=== PATIENT | female | born 1950 | race Caucasian/White ===

== ENCOUNTER → 2016-12-03 | Outpatient (CLI) | payer MEDICARE ==
[~2016-12-03] MED LIST: /ESOM40CA; /WARF4TA; ALBU17IN INH; ALBU83IN INH; CALC500T49 PO; CARA1TAB2 PO; COUM1TAB17 PO; COUM2.5T11 PO; DELT1TAB PO; EFFE75CA75; GUAI100S7 PO; IBUP200C PO; IPRASOL4 NEB; KLON0.5T; LASI20TA PO; LEVO500T32 PO; OMEP40CA2 PO; PERC5TAB6 PO; REGL5TAB2 PO; REQU1TAB16 PO; RYTH150T; ZOFR20TA PO
== END ==
LOC: M SMT 14:00
PROVIDERS: ATTEND Physician Assistant Medical
DX: M81.0 Age-related osteoporosis without current pathological fracture (principal)

== ENCOUNTER → 2016-12-25 | Outpatient (CLI) | payer MEDICARE ==
[2016-12-25 18:08] LABS: BASO % 0.4 % (0.0-1.0); EOS # 0.1 K/mm3 (0.0-0.50); EOS % 1.8 % (0.0-3.0); LARGE UNSTAINED CELL # 0.1 K/mm3 (0.0-0.4); LARGE UNSTAINED CELL % 2.4 % (0.0-4.0); LYMPH # 1.7 K/mm3 (1.5-4.5); LYMPH % 31.7 % (24.0-44.0); MEAN CORPUSCULAR HEMOGLOBIN 27.5 pg (27.0-33.0); MEAN CORPUSCULAR HGB CONC 30.4 g/dl (32.0-36.5); MEAN CORPUSCULAR VOLUME 90.7 fl (80.0-96.0); MONO # 0.3 K/mm3 (0.0-0.8); MONO % 5.1 % (0.0-5.0); NEUTROPHILS # 3.1 K/mm3 (1.8-7.7); NEUTROPHILS % 58.7 % (36.0-66.0); PLATELET COUNT, AUTOMATED 269 k/mm3 (150-450); RED CELL DISTRIBUTION WIDTH 13.6 % (11.5-14.5); WHITE BLOOD COUNT 5.2 K/mm3 (4.0-10.0)
[2016-12-25 18:22] LABS: ALBUMIN 3.5 GM/DL (3.2-5.2); ANION GAP 8 MEQ/L (8-16); BLOOD UREA NITROGEN 13 MG/DL (7-18); CALCIUM LEVEL 8.3 MG/DL (8.8-10.2); CARBON DIOXIDE LEVEL 28 MEQ/L (21-32); CHLORIDE LEVEL 106 MEQ/L (98-107); CREATININE FOR GFR 0.69 MG/DL (0.55-1.02); GLOMERULAR FILTRATION RATE > 60.0 (>45); GLUCOSE, FASTING 88 MG/DL (80-110); PHOSPHORUS LEVEL 2.6 MG/DL (2.5-4.9); POTASSIUM SERUM 4.2 MEQ/L (3.5-5.1); SODIUM LEVEL 142 MEQ/L (136-145); THYROXINE (T4) 9.4 UG/DL (4.5-12.0)
[2016-12-25 18:26] LABS: LUTEINIZING HORMONE 20.8 mIU/mL
== END ==
LOC: M SMT 14:00
PROVIDERS: ATTEND Nurse Practitioner Family
DX: L29.9 Pruritus, unspecified (principal)

== ENCOUNTER 2017-01-20 15:58 | Emergency (ER) | payer MEDICARE ==
[2017-01-20] MEDS ORDERED: MORPHINE 2 MG/ML 1ML SYRINGE As Ordered ONE ×2 (16:50→18:46)
[2017-01-20] MEDS ORDERED: ONDANSETRON 4MG/2ML VIAL (J2405) As Ordered ONE (16:50)
[2017-01-20 17:23] LABS: BASO % 0.3 % (0.0-1.0); EOS # 0.1 K/mm3 (0.0-0.50); EOS % 1.4 % (0.0-3.0); LARGE UNSTAINED CELL # 0.1 K/mm3 (0.0-0.4); LYMPH # 1.2 K/mm3 (1.5-4.5); LYMPH % 24.3 % (24.0-44.0); MEAN CORPUSCULAR HEMOGLOBIN 27.4 pg (27.0-33.0); MEAN CORPUSCULAR HGB CONC 31.7 g/dl (32.0-36.5); MEAN CORPUSCULAR VOLUME 86.2 fl (80.0-96.0); MONO # 0.1 K/mm3 (0.0-0.8); NEUTROPHILS # 3.3 K/mm3 (1.8-7.7); PLATELET COUNT, AUTOMATED 174 k/mm3 (150-450); WHITE BLOOD COUNT 4.8 K/mm3 (4.0-10.0)
[2017-01-20 17:38] LABS: ALBUMIN 3.2 GM/DL (3.2-5.2); ALBUMIN/GLOBULIN RATIO 0.82 (1.00-1.93); ALKALINE PHOSPHATASE 89 U/L (45-117); ALT/SGPT 28 U/L (12-78); ANION GAP 9 MEQ/L (8-16); AST/SGOT 35 U/L (15-37); BILIRUBIN,DIRECT < 0.1 MG/DL (0.0-0.2); BILIRUBIN,TOTAL 0.2 MG/DL (0.2-1.0); BLOOD UREA NITROGEN 22 MG/DL (7-18); CALCIUM LEVEL 9.1 MG/DL (8.8-10.2); CARBON DIOXIDE LEVEL 27 MEQ/L (21-32); CHLORIDE LEVEL 101 MEQ/L (98-107); CREATININE FOR GFR 0.78 MG/DL (0.55-1.02); GLOMERULAR FILTRATION RATE > 60.0 (>45); GLUCOSE, FASTING 105 MG/DL (80-110); POTASSIUM SERUM 3.9 MEQ/L (3.5-5.1); SODIUM LEVEL 137 MEQ/L (136-145); TOTAL PROTEIN 7.1 GM/DL (6.4-8.2)
[2017-01-20 19:12] LABS: INR 1.85
--- NOTE | 2017-01-20 19:26 | REP ---
Clinical: Renal colic. Comparison: 05/24/2011. 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 Lung bases demonstrate chronic bibasilar fibroatelectatic changes similar to prior examination. Liver, spleen, pancreas, bilateral adrenal glands and kidneys are normal for noncontrast evaluation. The patient is status post cholecystectomy. No perinephric stranding, hydroureteronephrosis, intrarenal or obstructing ureteral calculi are identified. IVC filter in stable position. The enteric system is without obstruction or acute inflammatory process sigmoid diverticula noted without acute diverticulitis. Pelvis demonstrates normal bladder and evidence for prior hysterectomy. No ascites. No free air. No obvious adenopathy. Abdominal aorta without aneurysm. Musculoskeletal structures demonstrate degenerative changes. Impression: 1. No acute intra-abdominal or pelvic pathology appreciated. 2. Chronic elevation to the left hemidiaphragm with changes suggesting prior diaphragmatic rupture repair. 3. No free fluid. 4. Kidneys without hydroureternephrosis, intrarenal or obstructing ureteral calculi. Signed by Billy Duarte MD 01/20/2017 07:18 P
[2017-01-20] MEDS ORDERED: ZITH250T PO (19:59)
[2017-01-20] MEDS ORDERED: LASI20TA PO (19:59)
[2017-01-20] MEDS ORDERED: PRESCAP6 PO (20:02)
[2017-01-20] MEDS ORDERED: CO Q1CAP PO (20:02)
[2017-01-20] MEDS ORDERED: DOXE10CA PO (20:02)
[2017-01-20] MEDS ORDERED: GI COCKTAIL 50ML BTL(HYOSCYAMINE/MAALOX/LIDOCAINE VISCOUS)(1:3:1) As Ordered ONE (20:20)
[2017-01-20] MEDS ORDERED: LevoFLOXacin 500 MG TABLET As Ordered ONE (20:20)
--- NOTE | 2017-01-20 22:07 | EDDOCDS ---
Physician Documentation [facility] Name: eLxi Duarte Age: 66 yrs Sex: Female : 1950 Arrival Date: 01/20/2017 Time: 15:58 Bed I2 / M2 Private MD: Sherman Bailey FPA Disposition: 01/20/17 21:48 Discharged to Home/Self Care. Impression: Cystitis, Nausea and vomiting, Diarrhea, unspecified. - Condition is Stable. - Discharge Instructions: Food Choices to Help Relieve Diarrhea, Adult, Urinary Tract Infection. - Prescriptions for Levaquin 500 mg Oral Tablet - take 1 tablet by ORAL route once daily for 7 days; 7 tablet. - Medication Reconciliation form. - Follow up: Emergency Department; When: As needed. Follow up: Sherman Bailey; When: Call to arrange an appointment; Reason: Wound/Symptom Recheck, Recheck today's complaints, Worsening of conditions, Continuance of care. Follow up: Sherman Bailey; When: Tomorrow; Reason: Wound/Symptom Recheck, Recheck today's complaints, Worsening of conditions, Continuance of care. - Problem is an ongoing problem. - Symptoms have improved. Historical: - Allergies: PENICILLINS (Unknown); codeineI dont remember; Dilantin (Hives); Erythromycin (Vomit); - Home Meds: 1. calcium 500 mg twice a day 2. Coumadin 5 mg M-T-- and 2.5 mg Th and Damon Oral tab 1 tab once daily 3. Carafate 1 gram Oral tab 1 tab 4 times per day 4. Lasix 20 mg Oral tab 1 tab once daily 5. omeprazole 40 mg Oral cpDR 1 cap 2 times per day 6. Percocet 5-325 mg Oral tab I don't take it unless I am desperate 7. Requip 1 mg Oral tab 1 tab daily 8. Ventolin Rotahaler/Rotacaps Inhl as needed 9. Zofran (as hydrochloride) 4 mg Oral tab as needed 10. z-radha 1 tab daily starte yesterday - PMHx: Anemia; DVT; GERD; Hiatal Hernia; Osteoporosis; PE; restless leg syndrome; Tear Film Insufficiency; - PSHx: Cholecystectomy; Breast Reduction; Hysterectomy; HERNIA REPAIR; Appendectomy; VIJAY FILTER 2005; - Social history: Smoking status: Patient states former smoker of tobacco. No barriers to communication noted, The patient speaks fluent [place]. - Family history: Not pertinent. - : The pt / caregiver states he / she is on anticoagulants: coumadin. Home medication list is obtained from the patient, [employer] import data. - Exposure Risk Screening:: None identified. Vital Signs: 01/20 16:02 BP 90 / 55; Pulse 89; Resp 16; Temp 100.6(O); Pulse Ox 97% ; Weight 62.6 kg / 138.01 lr2 lbs (R); Height 5 ft. 2 in. (157.48 cm) (R); Pain 8/10; 18:09 BP 103 / 64; Pulse 71; Resp 16; Temp 98.1; Pulse Ox 96% on R/A; lr2 19:17 BP 106 / 69; Pulse 72; Pulse Ox 94% ; Pain 3/10; kc3 19:18 BP 106 / 69; Pulse 72; Resp 18; Pulse Ox 94% on R/A; Pain 3/10; kc3 21:28 BP 134 / 71 Supine; Pulse 96; kc3 21:28 BP 141 / 79 Sitting; Pulse 69; kc3 21:28 BP 129 / 81 Standing; Pulse 73; kc3 22:04 BP 115 / 73; Pulse 65; Resp 18; Temp 97.2(O); Pulse Ox 98% on R/A; kc3 16:02 Body Mass Index 25.24 (62.60 kg, 157.48 cm) lr2 MDM: 16:45 NS 0.9% 1000 ml IV at bolus once ordered. cc10 16:45 Ondansetron 4 mg IVP once ordered. cc10 16:45 IV Saline Lock ordered. cc10 16:45 Undress patient appropriately for examination ordered. cc10 16:45 morphine 2 mg IVP once ordered. cc10 16:45 Stool samples ordered. cc10 16:46 Basic Metabolic Profile Ordered. EDMS 16:46 CBC with Diff Ordered. EDMS 16:46 Lipase Ordered. EDMS 16:46 Liver Profile Ordered. EDMS 16:46 Urinalysis Ordered. EDMS 16:46 Urine Culture Ordered. EDMS 16:47 NOTHING BY MOUTH+DIET ordered. EDMS 16:48 GASTROINTESTINAL (GI) PANEL Ordered. EDMS 17:53 Financial registration complete. zo 17:56 Basic Metabolic Profile Reviewed. cc10 17:56 CBC with Diff Reviewed. cc10 17:56 Liver Profile Reviewed. cc10 17:56 Urinalysis Reviewed. cc10 17:56 Lipase Reviewed. cc10 17:57 [facility] [place] [facility] Payment Agreement was scanned into [employer] and attached to record. zo 18:26 BED REQUEST+ADM ordered. EDMS 18:37 morphine 2 mg IVP once ordered. cc10 18:37 Pt & Aptt Ordered. EDMS 18:37 CT ABD & PELVIS: No Contrast Ordered. EDMS 19:51 NS 0.9% 1000 ml IV at bolus once ordered. cc10 20:05 levofloxacin 500 mg PO once ordered. cc10 20:05 GI Cocktail - (Alum-Mag Hydroxide-Simeth 30 ml, Lidocaine 10 ml, Hyoscyamine 10 ml) PO cc10 once; Pre-mixed 50mL unit dose ordered. 21:00 Orthostatic VS ordered. cc10 21:00 Ambulate Patient to Assess Patient Safety ordered. cc10 Administered Medications: 17:08 Drug: morphine 2 mg [morphine 2 mg/mL intravenous cartridge (1 mL)] Route: IVP; Site: hs1 left antecubital; 17:09 Drug: NS 0.9% 1000 ml [sodium chloride 0.9 % intravenous solution] Route: IV; Rate: hs1 bolus; Site: left antecubital; 20:03 Follow up: IV Status: Completed infusion; IV Intake: 1000ml kas2 17:09 Drug: Ondansetron 4 mg [ondansetron HCl 2 mg/mL intravenous solution (2 mL)] Route: hs1 IVP; Site: left antecubital; 18:57 Drug: morphine 2 mg [morphine 2 mg/mL intravenous cartridge (1 mL)] Route: IVP; Site: hs1 left antecubital; 19:17 Follow up: BP 106 / 69; Pulse 72 bpm; Pulse Ox 94% ; Pain 3/10 Adult kc3 20:03 Drug: NS 0.9% 1000 ml [sodium chloride 0.9 % intravenous solution] Route: IV; Rate: kas2 bolus; Site: left antecubital; 20:24 Drug: levofloxacin 500 mg [levofloxacin 500 mg tablet (1 tabs)] Route: PO; kas2 20:25 Drug: GI Cocktail - (Alum-Mag Hydroxide-Simeth Suspension 225 mg-200 mg-25 mg/5 mL 30 kas2 ml, Lidocaine Liquid 2 % 10 ml, Hyoscyamine Liquid 10 ml) Route: PO; Signatures: Dispatcher [employer] EDMS Lynette Whitfield, RN RN kcs Daniel Woods Colin, PA-C PA-C cc10 Rylee Jenkins RN RN kc3 Ruth Albrecht RN hs1 Shabana Antoine RN kas2 The chart was reviewed and I authenticate all verbal orders and agree with the evaluation and treatment provided.Corrections: (The following items were deleted from the chart) 16:48 16:46 GASTROINTESTINAL (GI) PANEL+DONNA ordered. EDMS EDMS Attachments: 17:57 [facility] [place] [facility] Payment Agreement zo MTDD
--- NOTE | 2017-01-20 22:07 | EDDOCDS ---
Nurse's Notes [facility] Name: Lexi Duarte Age: 66 yrs Sex: Female : 1950 Arrival Date: 01/20/2017 Time: 15:58 Bed I2 / M2 Private MD: Sherman Bailey FPA Diagnosis: Cystitis;Nausea and vomiting;Diarrhea, unspecified Presentation: 01/20 16:12 Presenting complaint: Patient states: she has been sick since Thursday with V/D and kcs cold verbena - saw her PMD yesterday and he gave her meds for vomiting and a Z-radha - hs not committed today but has had diarrhea all day - nurse from the office called her on f/u and told her to come here for IV fluids. Also has severe back pain. Adult Sepsis Screening: The patient does not have new or worsening altered mentation. Patient's respiratory rate is less than 22. Systolic blood pressure is less than or equal to 100 (1 point). Patient has a qSOFA score of 1- Negative Sepsis Screen. Suicide/Homicide risk assessment- the patient denies having any suicidal and/or homicidal ideations and does not present with any other emotional, behavioral or mental health complaints. Status: Patient is not a clerk telegraph service or dependent. Transition of care: patient was not received from another setting of care. 16:12 Acuity: IFEANYI Level 3 kcs 16:12 Method Of Arrival: Wheelchair kcs Triage Assessment: 16:18 General: Appears ill, slender, well developed, well nourished, well groomed, Behavior kcs is cooperative, pleasant. Pain: Location: back pain Pain currently is 8 out of 10 on a pain scale. Neurological: Level of Consciousness is awake, alert. Respiratory: Airway is patent Respiratory effort is even, unlabored, Respiratory pattern is regular, symmetrical. Derm: Skin is intact, is fragile, Skin is dry, Skin is normal. Historical: - Allergies: PENICILLINS (Unknown); codeineI dont remember; Dilantin (Hives); Erythromycin (Vomit); - Home Meds: 1. calcium 500 mg twice a day 2. Coumadin 5 mg M-T-- and 2.5 mg Th and Damon Oral tab 1 tab once daily 3. Carafate 1 gram Oral tab 1 tab 4 times per day 4. Lasix 20 mg Oral tab 1 tab once daily 5. omeprazole 40 mg Oral cpDR 1 cap 2 times per day 6. Percocet 5-325 mg Oral tab I don't take it unless I am desperate 7. Requip 1 mg Oral tab 1 tab daily 8. Ventolin Rotahaler/Rotacaps Inhl as needed 9. Zofran (as hydrochloride) 4 mg Oral tab as needed 10. z-radha 1 tab daily starte yesterday - PMHx: Anemia; DVT; GERD; Hiatal Hernia; Osteoporosis; PE; restless leg syndrome; Tear Film Insufficiency; - PSHx: Cholecystectomy; Breast Reduction; Hysterectomy; HERNIA REPAIR; Appendectomy; VIJAY FILTER 2005; - Social history: Smoking status: Patient states former smoker of tobacco. No barriers to communication noted, The patient speaks fluent Amharic. - Family history: Not pertinent. - : The pt / caregiver states he / she is on anticoagulants: coumadin. Home medication list is obtained from the patient, [place] import data. - Exposure Risk Screening:: None identified. Screenin:09 Screening information is obtained from the patient. Fall risk: No risks identified. hs1 Assistance ADL's: requires no assistance with activities of daily living. Abuse/DV Screen: The patient / caregiver reports he/she is: not in a situation that causes fear, pain or injury. Nutritional screening: No deficits noted. Advance Directives: There is no active DNR order. home support is adequate. Assessment: 17:09 General: Appears in no apparent distress, uncomfortable, Behavior is cooperative. hs1 Neurological: Level of Consciousness is awake, alert, obeys commands, Oriented to person, place, time. GI: Bowel sounds present X 4 quads. Abd is soft Abd is tender to palpation X 4 quads. GI: Reports diarrhea, nausea, vomiting. GI: Abdomen is non- distended. Derm: Skin is pink, warm & dry. normal. 18:45 General: Appears in no apparent distress, Behavior is appropriate for age, cooperative. hs1 Pain: Location: abdomen. Neurological: Level of Consciousness is awake, alert, obeys commands. Respiratory: No deficits noted. GI: Denies nausea, vomiting. Derm: Skin is pink, warm & dry. normal. 19:18 General: Appears in no apparent distress, comfortable, Behavior is appropriate for age, kc3 cooperative. Pain: Pain currently is 3 out of 10 on a pain scale. Respiratory: No deficits noted. Derm: Skin is pink, warm & dry. 20:20 General: Appears in no apparent distress, comfortable, Behavior is appropriate for age, kc3 cooperative. Neurological: Level of Consciousness is awake, alert, obeys commands. Respiratory: Respiratory effort is even, unlabored. Derm: Skin is pink, warm & dry. 21:20 General: Appears in no apparent distress, comfortable, Behavior is appropriate for age, kc3 cooperative, Pt ambulated to bathroom and back to bed with minimal assistance. Pt reports uses cane at home. Pt reports mild weakness. Provider aware. . 22:01 General: Appears in no apparent distress, comfortable, Behavior is appropriate for age, kc3 cooperative. Pain: Location: back. Respiratory: Respiratory effort is even, unlabored, Respiratory pattern is regular, symmetrical. Derm: Skin is pink, warm & dry. Vital Signs: 16:02 BP 90 / 55; Pulse 89; Resp 16; Temp 100.6(O); Pulse Ox 97% ; Weight 62.6 kg (R); Height lr2 5 ft. 2 in. (157.48 cm) (R); Pain 8/10; 18:09 BP 103 / 64; Pulse 71; Resp 16; Temp 98.1; Pulse Ox 96% on R/A; lr2 19:17 BP 106 / 69; Pulse 72; Pulse Ox 94% ; Pain 3/10; kc3 19:18 BP 106 / 69; Pulse 72; Resp 18; Pulse Ox 94% on R/A; Pain 3/10; kc3 21:28 BP 134 / 71 Supine; Pulse 96; kc3 21:28 BP 141 / 79 Sitting; Pulse 69; kc3 21:28 BP 129 / 81 Standing; Pulse 73; kc3 22:04 BP 115 / 73; Pulse 65; Resp 18; Temp 97.2(O); Pulse Ox 98% on R/A; kc3 16:02 Body Mass Index 25.24 (62.60 kg, 157.48 cm) lr2 Vitals: 16:18 Log In Time: January 20, 2017 at 15:58. [facility] ED Course: 16:00 Patient visited by Nicole Bruce. lr2 16:00 Sherman Bailey is Private Physician. lr2 16:00 Patient moved to Waiting lr2 16:05 Patient moved to Pre RCE lr2 16:14 Triage Initiated kcs 16:26 Patient moved to Triage 2 ms18 16:40 Abhi Hitchcock PA-C is PHCP. cc10 16:40 Gayathri Barone MD is Attending Physician. cc10 16:40 Patient visited by Abhi Hitchcock PA-C. cc10 16:40 Patient visited by Abhi Hitchcock PA-C. cc10 16:45 Rtuh Albrecht RN is Primary Nurse. srm 16:45 Patient moved to I2 / M2 srm 17:08 Basic Metabolic Profile Sent. hs1 17:08 CBC with Diff Sent. hs1 17:08 Lipase Sent. hs1 17:08 Liver Profile Sent. hs1 17:08 Urinalysis Sent. hs1 17:08 Urine Culture Sent. hs1 17:10 The patient / caregiver is instructed regarding the plan of care and ED course. hs1 17:10 Inserted saline lock: 20 gauge in left antecubital area and blood collected. The hs1 patient tolerated the procedure well. 17:20 Patient visited by Jo Iverson RN. mk4 17:57 [facility] Payment Agreement was scanned into [employer] and attached to record. zo 18:10 Patient visited by Jo Iverson RN. mk4 18:45 Patient visited by Ruth Albrecht RN. hs1 18:57 Pt & Aptt Sent. hs1 19:19 Patient visited by Rylee Jenkins RN. kc3 19:25 Primary Nurse role handed off by Ruth Albrecht RN mcp 20:04 Patient visited by Shabana Antoine RN. kas2 20:11 CT ABD & PELVIS: No Contrast Returned. EDMS 20:25 Patient visited by Shabana Antoine RN. kas2 21:28 Patient visited by Rylee Jenkins RN. kc3 21:48 Sherman Bailey is Referral Physician. cc10 21:48 Referral Physician role handed off by Sherman Bailey cc10 21:48 Sherman Bailey is Referral Physician. cc10 22:03 Discontinued IV lock intact, bleeding controlled, pressure dressing applied, No kc3 redness/swelling at site. No procedures done that require assistance. Administered Medications: 17:08 Drug: morphine 2 mg [morphine 2 mg/mL intravenous cartridge (1 mL)] Route: IVP; Site: hs1 left antecubital; 17:09 Drug: NS 0.9% 1000 ml [sodium chloride 0.9 % intravenous solution] Route: IV; Rate: hs1 bolus; Site: left antecubital; 20:03 Follow up: IV Status: Completed infusion; IV Intake: 1000ml kas2 17:09 Drug: Ondansetron 4 mg [ondansetron HCl 2 mg/mL intravenous solution (2 mL)] Route: hs1 IVP; Site: left antecubital; 18:57 Drug: morphine 2 mg [morphine 2 mg/mL intravenous cartridge (1 mL)] Route: IVP; Site: hs1 left antecubital; 19:17 Follow up: BP 106 / 69; Pulse 72 bpm; Pulse Ox 94% ; Pain 3/10 Adult kc3 20:03 Drug: NS 0.9% 1000 ml [sodium chloride 0.9 % intravenous solution] Route: IV; Rate: kas2 bolus; Site: left antecubital; 20:24 Drug: levofloxacin 500 mg [levofloxacin 500 mg tablet (1 tabs)] Route: PO; kas2 20:25 Drug: GI Cocktail - (Alum-Mag Hydroxide-Simeth Suspension 225 mg-200 mg-25 mg/5 mL 30 kas2 ml, Lidocaine Liquid 2 % 10 ml, Hyoscyamine Liquid 10 ml) Route: PO; Intake: 20:03 IV: 1000.00ml; Total: 1000.00ml. kas2 Order Results: Lab Order: Basic Metabolic Profile; [facility]' 01/20/17 16:54 Test: GLUCOSE, FASTING; Value: 105; Range: 80-110; Units: MG/DL; Status: F Test: BLOOD UREA NITROGEN; Value: 22; Range: 7-18; Abnormal: Above high normal; Units: MG/DL; Status: F Test: CREATININE FOR GFR; Value: 0.78; Range: 0.55-1.02; Units: MG/DL; Status: F Test: GLOMERULAR FILTRATION RATE; Value: > 60.0; Range: >45; Status: F Test: SODIUM LEVEL; Value: 137; Range: 136-145; Units: MEQ/L; Status: F Test: POTASSIUM SERUM; Value: 3.9; Range: 3.5-5.1; Units: MEQ/L; Status: F Test: CHLORIDE LEVEL; Value: 101; Range: 98-107; Units: MEQ/L; Status: F Test: CARBON DIOXIDE LEVEL; Value: 27; Range: 21-32; Units: MEQ/L; Status: F Test: ANION GAP; Value: 9; Range: 8-16; Units: MEQ/L; Status: F Test: CALCIUM LEVEL; Value: 9.1; Range: 8.8-10.2; Units: MG/DL; Status: F Test Note: ; Units are mL/min/1.73 m2 Chronic Kidney Disease Staging per NKF: Stage I & II GFR >=60 Normal to Mildly Decreased Stage III GFR 30-59 Moderately Decreased Stage IV GFR 15-29 Severely Decreased Stage V GFR <15 Very Little GFR Left ESRD GFR <15 on MATERIAL HANDLING TECHNICIAN Lab Order: CBC with Diff; SPEC'M 01/20/17 16:54 Test: WHITE BLOOD COUNT; Value: 4.8; Range: 4.0-10.0; Units: K/mm3; Status: F Test: RED BLOOD COUNT; Value: 4.56; Range: 4.00-5.40; Units: M/mm3; Status: F Test: HEMOGLOBIN; Value: 12.5; Range: 12.0-16.0; Units: g/dl; Status: F Test: HEMATOCRIT; Value: 39.3; Range: 36.0-47.0; Units: %; Status: F Test: MEAN CORPUSCULAR VOLUME; Value: 86.2; Range: 80.0-96.0; Units: fl; Status: F Test: MEAN CORPUSCULAR HEMOGLOBIN; Value: 27.4; Range: 27.0-33.0; Units: pg; Status: F Test: MEAN CORPUSCULAR HGB CONC; Value: 31.7; Range: 32.0-36.5; Abnormal: Below low normal; Units: g/dl; Status: F Test: RED CELL DISTRIBUTION WIDTH; Value: 14.0; Range: 11.5-14.5; Units: %; Status: F Test: PLATELET COUNT, AUTOMATED; Value: 174; Range: 150-450; Units: k/mm3; Status: F Test: NEUTROPHILS %; Value: 69.0; Range: 36.0-66.0; Abnormal: Above high normal; Units: %; Status: F Test: LYMPH %; Value: 24.3; Range: 24.0-44.0; Units: %; Status: F Test: MONO %; Value: 3.0; Range: 0.0-5.0; Units: %; Status: F Test: EOS %; Value: 1.4; Range: 0.0-3.0; Units: %; Status: F Test: BASO %; Value: 0.3; Range: 0.0-1.0; Units: %; Status: F Test: LARGE UNSTAINED CELL %; Value: 2.0; Range: 0.0-4.0; Units: %; Status: F Test: NEUTROPHILS #; Value: 3.3; Range: 1.8-7.7; Units: K/mm3; Status: F Test: LYMPH #; Value: 1.2; Range: 1.5-4.5; Abnormal: Below low normal; Units: K/mm3; Status: F Test: MONO #; Value: 0.1; Range: 0.0-0.8; Units: K/mm3; Status: F Test: EOS #; Value: 0.1; Range: 0.0-0.50; Units: K/mm3; Status: F Test: BASO #; Value: 0.0; Range: 0.0-0.2; Units: K/mm3; Status: F Test: LARGE UNSTAINED CELL #; Value: 0.1; Range: 0.0-0.4; Units: K/mm3; Status: F Lab Order: Lipase; SPEC'M 01/20/17 16:54 Test: LIPASE; Value: 168; Range: 73-393; Units: U/L; Status: F Lab Order: Liver Profile; SPEC'M 01/20/17 16:54 Test: AST/SGOT; Value: 35; Range: 15-37; Units: U/L; Status: F Test: ALT/SGPT; Value: 28; Range: 12-78; Units: U/L; Status: F Test: ALKALINE PHOSPHATASE; Value: 89; Range: 45-117; Units: U/L; Status: F Test: BILIRUBIN,TOTAL; Value: 0.2; Range: 0.2-1.0; Units: MG/DL; Status: F Test: BILIRUBIN,DIRECT; Value: < 0.1; Range: 0.0-0.2; Units: MG/DL; Status: F Test: TOTAL PROTEIN; Value: 7.1; Range: 6.4-8.2; Units: GM/DL; Status: F Test: ALBUMIN; Value: 3.2; Range: 3.2-5.2; Units: GM/DL; Status: F Test: ALBUMIN/GLOBULIN RATIO; Value: 0.82; Range: 1.00-1.93; Abnormal: Below low normal; Status: F Lab Order: Urinalysis; SPEC'M 01/20/17 16:54 Test: APPEARANCE, URINE; Value: HAZY; Range: CLEAR; Status: F Test: COLOR, URINE; Value: YELLOW; Range: YELLOW; Status: F Test: PH,URINE; Value: 5.0; Range: 5.0-9.0; Units: UNITS; Status: F Test: SPECIFIC GRAVITY URINE AUTO; Value: 1.027; Range: 1.002-1.035; Status: F Test: PROTEIN, URINE AUTO; Value: 1+; Range: NEGATIVE; Abnormal: Above high normal; Units: mg/dL; Status: F Test: GLUCOSE, URINE (UA) AUTO; Value: NEGATIVE; Range: NEGATIVE; Units: mg/dL; Status: F Test: KETONE, URINE AUTO; Value: TRACE; Range: NEGATIVE; Abnormal: Above high normal; Units: mg/dL; Status: F Test: UROBILINOGEN, URINE AUTO; Value: 0.2; Range: 0.0-2.0; Units: mg/dL; Status: F Test: BILIRUBIN, URINE AUTO; Value: NEGATIVE; Range: NEGATIVE; Status: F Test: NITRITE, URINE AUTO; Value: POSITIVE; Range: NEGATIVE; Status: F Test: LEUKOCYTE ESTERASE, URINE AUTO; Value: TRACE; Range: NEGATIVE; Abnormal: Above high normal; Status: F Test: BLOOD, URINE BLOOD; Value: 1+; Range: NEGATIVE; Abnormal: Above high normal; Status: F Test: WBC, URINE AUTO; Value: 5; Range: 0-3; Abnormal: Above high normal; Units: /HPF; Status: F Test: RBC, URINE AUTO; Value: 4; Range: 0-3; Abnormal: Above high normal; Units: /HPF; Status: F Test: BACTERIA, URINE AUTO; Value: 3+; Range: NEGATIVE; Abnormal: Above high normal; Status: F Test: SQUAMOUS EPITHELIAL CELL UR AU; Value: 0; Range: 0-6; Units: /HPF; Status: F Test: MUCUS, URINE; Value: MODERATE; Range: NEGATIVE; Status: F Test: HYALINE CAST, URINE AUTO; Value: 4; Range: 0-1; Units: /LPF; Status: F Lab Order: Pt & Aptt; SPEC'M 01/20/17 18:56 Test: PROTHROMBIN TIME; Value: 21.4; Range: 12.3-14.5; Abnormal: Above high normal; Units: SECONDS; Status: F Test: INR; Value: 1.85; Status: F Test: PARTIAL THROMBOPLASTIN TIME; Value: 35.1; Range: 26.6-37.1; Units: SECONDS; Status: F Test Note: ; THERAPUTIC HUMAN INR VALUES INDICATIONS NORMAL RANGES PROPHYLAXIS/TREATMENT OF: VENOUS THROMBOSIS 2.0-3.0 PULMONARY EMBOLISM 2.0-3.0 PREVENTION OF SYSTEMIC EMBOLISM FROM: TISSUE HEART VALVES 2.0-3.0 ACUTE MYOCARDIAL INFARCTION 2.0-3.0 VALVULAR HEART DISEASE 2.0-3.0 ATRIAL FIBRILLATION 2.0-3.0 MECHANICAL VALVES(HIGH RISK) 2.5-3.5 RECURRENT MYOCARDIAL INFARCTION 2.5-3.5 Radiology Order: CT ABD & PELVIS: No Contrast Test: CT ABD & PELVIS: No Contrast REASON FOR EXAMINATION: Renal colic; Clinical: Renal colic.; ; Comparison: 05/24/2011.; ; Findings:; 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 Lung bases demonstrate chronic bibasilar fibroatelectatic changes; similar to prior examination.; ; Liver, spleen, pancreas, bilateral adrenal glands and kidneys are normal for; noncontrast evaluation. The patient is status post cholecystectomy. No; perinephric stranding, hydroureteronephrosis, intrarenal or obstructing ureteral; calculi are identified. IVC filter in stable position. The enteric system is; without obstruction or acute inflammatory process sigmoid diverticula noted; without acute diverticulitis. Pelvis demonstrates normal bladder and evidence; for prior hysterectomy. No ascites. No free air. No obvious adenopathy.; Abdominal aorta without aneurysm. Musculoskeletal structures demonstrate; degenerative changes.; ; Impression:; 1. No acute intra-abdominal or pelvic pathology appreciated.; 2. Chronic elevation to the left hemidiaphragm with changes suggesting prior; diaphragmatic rupture repair.; 3. No free fluid.; 4. Kidneys without hydroureternephrosis, intrarenal or obstructing ureteral; calculi.; ; ; Signed by; Billy Duarte MD 01/20/2017 07:18 P; Outcome: 21:29 CT Study completed. kc3 21:48 Discharge ordered by Provider. cc10 22:04 Discharge Assessment: Patient awake, alert and oriented x 3. No cognitive and/or kc3 functional deficits noted. Patient verbalized understanding of disposition instructions. patient administered narcotics - yes. Pt provided with safe discharge. The following High Risk Discharge criteria are identified: None. Discharged to home via wheelchair. Condition: stable. Discharge instructions given to patient, Instructed on discharge instructions, follow up and referral plans. medication usage, Demonstrated understanding of instructions, medications, Pt was receptive of discharge instructions/ teaching. Prescriptions given X 1. Property :Personal belongings accompany Pt. 22:06 Patient left the ED. kc3 Signatures: Dispatcher [employer] EDMS Lynette Whitfield RN Danielle Portillo RN Elmira Loco RN RN mcp Olin, Zoeann zo Sherrill, Hannah, RN RN hs1 Jo Iverson RN RN mk4 Abhi Hitchcock, PA-C PA-C cc10 Lakia Antoine RN RN ms18 Rylee Jenkins RN RN kc3 Shabana Antoine RN RN kas2 Nicole Bruce2 Corrections: (The following items were deleted from the chart) 22:06 22:04 Discharge Assessment: Patient awake, alert and oriented x 3. No cognitive and/or kc3 functional deficits noted. Patient verbalized understanding of disposition instructions. patient administered narcotics - no kc3 MTDD
--- NOTE | 2017-01-22 23:06 | EDDOCDS ---
Nurse's Notes [facility] Name: Lexi Duarte Age: 66 yrs Sex: Female : 1950 Arrival Date: 01/20/2017 Time: 15:58 Bed I2 / M2 Private MD: Sherman Bailey FPA Diagnosis: Cystitis;Nausea and vomiting;Diarrhea, unspecified Presentation: 01/20 16:12 Presenting complaint: Patient states: she has been sick since Thursday with V/D and k[facility] [place] - saw her PMD yesterday and he gave her meds for vomiting and a Z-radha - hs not committed today but has had diarrhea all day - nurse from the office called her on f/u and told her to come here for IV fluids. Also has severe back pain. Adult Sepsis Screening: The patient does not have new or worsening altered mentation. Patient's respiratory rate is less than 22. Systolic blood pressure is less than or equal to 100 (1 point). Patient has a qSOFA score of 1- Negative Sepsis Screen. Suicide/Homicide risk assessment- the patient denies having any suicidal and/or homicidal ideations and does not present with any other emotional, behavioral or mental health complaints. Status: Patient is not a answering service operator or dependent. Transition of care: patient was not received from another setting of care. 16:12 Acuity: IFEANYI Level 3 kcs 16:12 Method Of Arrival: Wheelchair kcs Triage Assessment: 16:18 General: Appears ill, slender, well developed, well nourished, well groomed, Behavior kcs is cooperative, pleasant. Pain: Location: back pain Pain currently is 8 out of 10 on a pain scale. Neurological: Level of Consciousness is awake, alert. Respiratory: Airway is patent Respiratory effort is even, unlabored, Respiratory pattern is regular, symmetrical. Derm: Skin is intact, is fragile, Skin is dry, Skin is normal. Historical: - Allergies: PENICILLINS (Unknown); codeineI dont remember; Dilantin (Hives); Erythromycin (Vomit); - Home Meds: 1. calcium 500 mg twice a day 2. Coumadin 5 mg M-T-- and 2.5 mg Th and Damon Oral tab 1 tab once daily 3. Carafate 1 gram Oral tab 1 tab 4 times per day 4. Lasix 20 mg Oral tab 1 tab once daily 5. omeprazole 40 mg Oral cpDR 1 cap 2 times per day 6. Percocet 5-325 mg Oral tab I don't take it unless I am desperate 7. Requip 1 mg Oral tab 1 tab daily 8. Ventolin Rotahaler/Rotacaps Inhl as needed 9. Zofran (as hydrochloride) 4 mg Oral tab as needed 10. z-radha 1 tab daily starte yesterday - PMHx: Anemia; DVT; GERD; Hiatal Hernia; Osteoporosis; PE; restless leg syndrome; Tear Film Insufficiency; - PSHx: Cholecystectomy; Breast Reduction; Hysterectomy; HERNIA REPAIR; Appendectomy; VIJAY FILTER 2005; - Social history: Smoking status: Patient states former smoker of tobacco. No barriers to communication noted, The patient speaks fluent Thai. - Family history: Not pertinent. - : The pt / caregiver states he / she is on anticoagulants: coumadin. Home medication list is obtained from the patient, [employer] import data. - Exposure Risk Screening:: None identified. Screenin:09 Screening information is obtained from the patient. Fall risk: No risks identified. hs1 Assistance ADL's: requires no assistance with activities of daily living. Abuse/DV Screen: The patient / caregiver reports he/she is: not in a situation that causes fear, pain or injury. Nutritional screening: No deficits noted. Advance Directives: There is no active DNR order. home support is adequate. Assessment: 17:09 General: Appears in no apparent distress, uncomfortable, Behavior is cooperative. hs1 Neurological: Level of Consciousness is awake, alert, obeys commands, Oriented to person, place, time. GI: Bowel sounds present X 4 quads. Abd is soft Abd is tender to palpation X 4 quads. GI: Reports diarrhea, nausea, vomiting. GI: Abdomen is non- distended. Derm: Skin is pink, warm & dry. normal. 18:45 General: Appears in no apparent distress, Behavior is appropriate for age, cooperative. hs1 Pain: Location: abdomen. Neurological: Level of Consciousness is awake, alert, obeys commands. Respiratory: No deficits noted. GI: Denies nausea, vomiting. Derm: Skin is pink, warm & dry. normal. 19:18 General: Appears in no apparent distress, comfortable, Behavior is appropriate for age, kc3 cooperative. Pain: Pain currently is 3 out of 10 on a pain scale. Respiratory: No deficits noted. Derm: Skin is pink, warm & dry. 20:20 General: Appears in no apparent distress, comfortable, Behavior is appropriate for age, kc3 cooperative. Neurological: Level of Consciousness is awake, alert, obeys commands. Respiratory: Respiratory effort is even, unlabored. Derm: Skin is pink, warm & dry. 21:20 General: Appears in no apparent distress, comfortable, Behavior is appropriate for age, kc3 cooperative, Pt ambulated to bathroom and back to bed with minimal assistance. Pt reports uses cane at home. Pt reports mild weakness. Provider aware. . 22:01 General: Appears in no apparent distress, comfortable, Behavior is appropriate for age, kc3 cooperative. Pain: Location: back. Respiratory: Respiratory effort is even, unlabored, Respiratory pattern is regular, symmetrical. Derm: Skin is pink, warm & dry. Vital Signs: 16:02 BP 90 / 55; Pulse 89; Resp 16; Temp 100.6(O); Pulse Ox 97% ; Weight 62.6 kg (R); Height lr2 5 ft. 2 in. (157.48 cm) (R); Pain 8/10; 18:09 BP 103 / 64; Pulse 71; Resp 16; Temp 98.1; Pulse Ox 96% on R/A; lr2 19:17 BP 106 / 69; Pulse 72; Pulse Ox 94% ; Pain 3/10; kc3 19:18 BP 106 / 69; Pulse 72; Resp 18; Pulse Ox 94% on R/A; Pain 3/10; kc3 21:28 BP 134 / 71 Supine; Pulse 96; kc3 21:28 BP 141 / 79 Sitting; Pulse 69; kc3 21:28 BP 129 / 81 Standing; Pulse 73; kc3 22:04 BP 115 / 73; Pulse 65; Resp 18; Temp 97.2(O); Pulse Ox 98% on R/A; kc3 16:02 Body Mass Index 25.24 (62.60 kg, 157.48 cm) lr2 Vitals: 16:18 Log In Time: January 20, 2017 at 15:58. [facility] ED Course: 16:00 Patient visited by Nicole Bruce. lr2 16:00 Sherman Bailey is Private Physician. lr2 16:00 Patient moved to Waiting lr2 16:05 Patient moved to Pre RCE lr2 16:14 Triage Initiated kcs 16:26 Patient moved to Triage 2 ms18 16:40 Abhi Hitchcock PA-C is PHCP. cc10 16:40 Gayathri Barone MD is Attending Physician. cc10 16:40 Patient visited by Abhi Hitchcock PA-C. cc10 16:40 Patient visited by Abhi Hitchcock PA-C. cc10 16:45 Ruth Albrecht RN is Primary Nurse. srm 16:45 Patient moved to I2 / M2 srm 17:08 Basic Metabolic Profile Sent. hs1 17:08 CBC with Diff Sent. hs1 17:08 Lipase Sent. hs1 17:08 Liver Profile Sent. hs1 17:08 Urinalysis Sent. hs1 17:08 Urine Culture Sent. hs1 17:10 The patient / caregiver is instructed regarding the plan of care and ED course. hs1 17:10 Inserted saline lock: 20 gauge in left antecubital area and blood collected. The hs1 patient tolerated the procedure well. 17:20 Patient visited by Jo Iverson RN. mk4 17:57 [facility]LY [facility], [facility] Payment Agreement was scanned into [email or web address] and attached to record. zo 18:10 Patient visited by Jo Iverson RN. mk4 18:45 Patient visited by Ruth Albrecht RN. hs1 18:57 Pt & Aptt Sent. hs1 19:19 Patient visited by Rylee Jenkins RN. kc3 19:25 Primary Nurse role handed off by Ruth Albrecht RN [facility] 20:04 Patient visited by Shabana Antoine RN. kas2 20:11 CT ABD & PELVIS: No Contrast Returned. EDMS 20:25 Patient visited by Shabana Antoine RN. kas2 21:28 Patient visited by Rylee Jenkins RN. kc3 21:48 Sherman Bailey is Referral Physician. cc10 21:48 Referral Physician role handed off by Sherman Bailey cc10 21:48 Sherman Bailey is Referral Physician. cc10 22:03 Discontinued IV lock intact, bleeding controlled, pressure dressing applied, No kc3 redness/swelling at site. No procedures done that require assistance. 01/21 12:53 T-Sheet-- Draft Copy was scanned into [email or web address] and attached to record. gb 12:53 Radiology Report was scanned into [email or web address] and attached to record. gb Administered Medications: 01/20 17:08 Drug: morphine 2 mg [morphine 2 mg/mL intravenous cartridge (1 mL)] Route: IVP; Site: hs1 left antecubital; 17:09 Drug: NS 0.9% 1000 ml [sodium chloride 0.9 % intravenous solution] Route: IV; Rate: hs1 bolus; Site: left antecubital; 20:03 Follow up: IV Status: Completed infusion; IV Intake: 1000ml kas2 17:09 Drug: Ondansetron 4 mg [ondansetron HCl 2 mg/mL intravenous solution (2 mL)] Route: hs1 IVP; Site: left antecubital; 18:57 Drug: morphine 2 mg [morphine 2 mg/mL intravenous cartridge (1 mL)] Route: IVP; Site: hs1 left antecubital; 19:17 Follow up: BP 106 / 69; Pulse 72 bpm; Pulse Ox 94% ; Pain 3/10 Adult kc3 20:03 Drug: NS 0.9% 1000 ml [sodium chloride 0.9 % intravenous solution] Route: IV; Rate: kas2 bolus; Site: left antecubital; 20:24 Drug: levofloxacin 500 mg [levofloxacin 500 mg tablet (1 tabs)] Route: PO; kas2 20:25 Drug: GI Cocktail - (Alum-Mag Hydroxide-Simeth Suspension 225 mg-200 mg-25 mg/5 mL 30 kas2 ml, Lidocaine Liquid 2 % 10 ml, Hyoscyamine Liquid 10 ml) Route: PO; Intake: 20:03 IV: 1000.00ml; Total: 1000.00ml. kas2 Order Results: Lab Order: Basic Metabolic Profile; SPEC'M 01/20/17 16:54 Test: GLUCOSE, FASTING; Value: 105; Range: 80-110; Units: MG/DL; Status: F Test: BLOOD UREA NITROGEN; Value: 22; Range: 7-18; Abnormal: Above high normal; Units: MG/DL; Status: F Test: CREATININE FOR GFR; Value: 0.78; Range: 0.55-1.02; Units: MG/DL; Status: F Test: GLOMERULAR FILTRATION RATE; Value: > 60.0; Range: >45; Status: F Test: SODIUM LEVEL; Value: 137; Range: 136-145; Units: MEQ/L; Status: F Test: POTASSIUM SERUM; Value: 3.9; Range: 3.5-5.1; Units: MEQ/L; Status: F Test: CHLORIDE LEVEL; Value: 101; Range: 98-107; Units: MEQ/L; Status: F Test: CARBON DIOXIDE LEVEL; Value: 27; Range: 21-32; Units: MEQ/L; Status: F Test: ANION GAP; Value: 9; Range: 8-16; Units: MEQ/L; Status: F Test: CALCIUM LEVEL; Value: 9.1; Range: 8.8-10.2; Units: MG/DL; Status: F Test Note: ; Units are mL/min/1.73 m2 Chronic Kidney Disease Staging per NKF: Stage I & II GFR >=60 Normal to Mildly Decreased Stage III GFR 30-59 Moderately Decreased Stage IV GFR 15-29 Severely Decreased Stage V GFR <15 Very Little GFR Left ESRD GFR <15 on [place] [employer] [facility] Lab Order: CBC with Diff; SPEC'M 01/20/17 16:54 Test: WHITE BLOOD COUNT; Value: 4.8; Range: 4.0-10.0; Units: K/mm3; Status: F Test: RED BLOOD COUNT; Value: 4.56; Range: 4.00-5.40; Units: M/mm3; Status: F Test: HEMOGLOBIN; Value: 12.5; Range: 12.0-16.0; Units: g/dl; Status: F Test: HEMATOCRIT; Value: 39.3; Range: 36.0-47.0; Units: %; Status: F Test: MEAN CORPUSCULAR VOLUME; Value: 86.2; Range: 80.0-96.0; Units: fl; Status: F Test: MEAN CORPUSCULAR HEMOGLOBIN; Value: 27.4; Range: 27.0-33.0; Units: pg; Status: F Test: MEAN CORPUSCULAR HGB CONC; Value: 31.7; Range: 32.0-36.5; Abnormal: Below low normal; Units: g/dl; Status: F Test: RED CELL DISTRIBUTION WIDTH; Value: 14.0; Range: 11.5-14.5; Units: %; Status: F Test: PLATELET COUNT, AUTOMATED; Value: 174; Range: 150-450; Units: k/mm3; Status: F Test: NEUTROPHILS %; Value: 69.0; Range: 36.0-66.0; Abnormal: Above high normal; Units: %; Status: F Test: LYMPH %; Value: 24.3; Range: 24.0-44.0; Units: %; Status: F Test: MONO %; Value: 3.0; Range: 0.0-5.0; Units: %; Status: F Test: EOS %; Value: 1.4; Range: 0.0-3.0; Units: %; Status: F Test: BASO %; Value: 0.3; Range: 0.0-1.0; Units: %; Status: F Test: LARGE UNSTAINED CELL %; Value: 2.0; Range: 0.0-4.0; Units: %; Status: F Test: NEUTROPHILS #; Value: 3.3; Range: 1.8-7.7; Units: K/mm3; Status: F Test: LYMPH #; Value: 1.2; Range: 1.5-4.5; Abnormal: Below low normal; Units: K/mm3; Status: F Test: MONO #; Value: 0.1; Range: 0.0-0.8; Units: K/mm3; Status: F Test: EOS #; Value: 0.1; Range: 0.0-0.50; Units: K/mm3; Status: F Test: BASO #; Value: 0.0; Range: 0.0-0.2; Units: K/mm3; Status: F Test: LARGE UNSTAINED CELL #; Value: 0.1; Range: 0.0-0.4; Units: K/mm3; Status: F Lab Order: Lipase; SPEC'M 01/20/17 16:54 Test: LIPASE; Value: 168; Range: 73-393; Units: U/L; Status: F Lab Order: Liver Profile; SPEC' 01/20/17 16:54 Test: AST/SGOT; Value: 35; Range: 15-37; Units: U/L; Status: F Test: ALT/SGPT; Value: 28; Range: 12-78; Units: U/L; Status: F Test: ALKALINE PHOSPHATASE; Value: 89; Range: 45-117; Units: U/L; Status: F Test: BILIRUBIN,TOTAL; Value: 0.2; Range: 0.2-1.0; Units: MG/DL; Status: F Test: BILIRUBIN,DIRECT; Value: < 0.1; Range: 0.0-0.2; Units: MG/DL; Status: F Test: TOTAL PROTEIN; Value: 7.1; Range: 6.4-8.2; Units: GM/DL; Status: F Test: ALBUMIN; Value: 3.2; Range: 3.2-5.2; Units: GM/DL; Status: F Test: ALBUMIN/GLOBULIN RATIO; Value: 0.82; Range: 1.00-1.93; Abnormal: Below low normal; Status: F Lab Order: Urinalysis; SPEC'M 01/20/17 16:54 Test: APPEARANCE, URINE; Value: HAZY; Range: CLEAR; Status: F Test: COLOR, URINE; Value: YELLOW; Range: YELLOW; Status: F Test: PH,URINE; Value: 5.0; Range: 5.0-9.0; Units: UNITS; Status: F Test: SPECIFIC GRAVITY URINE AUTO; Value: 1.027; Range: 1.002-1.035; Status: F Test: PROTEIN, URINE AUTO; Value: 1+; Range: NEGATIVE; Abnormal: Above high normal; Units: mg/dL; Status: F Test: GLUCOSE, URINE (UA) AUTO; Value: NEGATIVE; Range: NEGATIVE; Units: mg/dL; Status: F Test: KETONE, URINE AUTO; Value: TRACE; Range: NEGATIVE; Abnormal: Above high normal; Units: mg/dL; Status: F Test: UROBILINOGEN, URINE AUTO; Value: 0.2; Range: 0.0-2.0; Units: mg/dL; Status: F Test: BILIRUBIN, URINE AUTO; Value: NEGATIVE; Range: NEGATIVE; Status: F Test: NITRITE, URINE AUTO; Value: POSITIVE; Range: NEGATIVE; Status: F Test: LEUKOCYTE ESTERASE, URINE AUTO; Value: TRACE; Range: NEGATIVE; Abnormal: Above high normal; Status: F Test: BLOOD, URINE BLOOD; Value: 1+; Range: NEGATIVE; Abnormal: Above high normal; Status: F Test: WBC, URINE AUTO; Value: 5; Range: 0-3; Abnormal: Above high normal; Units: /HPF; Status: F Test: RBC, URINE AUTO; Value: 4; Range: 0-3; Abnormal: Above high normal; Units: /HPF; Status: F Test: BACTERIA, URINE AUTO; Value: 3+; Range: NEGATIVE; Abnormal: Above high normal; Status: F Test: SQUAMOUS EPITHELIAL CELL UR AU; Value: 0; Range: 0-6; Units: /HPF; Status: F Test: MUCUS, URINE; Value: MODERATE; Range: NEGATIVE; Status: F Test: HYALINE CAST, URINE AUTO; Value: 4; Range: 0-1; Units: /LPF; Status: F Lab Order: Urine Culture; SPEC'M 01/20/17 16:54 Test: URINE CULTURE; Value: <EXTERNAL COMMENT eCWMed> FULL REPORT IN LAB NOTES (eCW and Medent).; Status: F Test: URINE CULTURE; Value: ORGANISM 1: ESCHERICHIA COLI; Status: F Test: URINE CULTURE; Value: ESCHERICHIA COLI; Status: F Test: URINE CULTURE; Value: COLONY COUNT CFU/ml >100,000; Status: F Test: URINE CULTURE; Value: GRAM NEG SENSI - VITEK 80; Status: F Test: URINE CULTURE; Value: Method: VIT2; Status: F Test: URINE CULTURE; Value: EXTD BRD SPCTRM BETA LACTAMASE -; Status: F Test: URINE CULTURE; Value: TRIMETHOPRIM/SULFAMETHOXAZOLE <=20 S; Status: F Test: URINE CULTURE; Value: AMPICILLIN >=32 R; Status: F Test: URINE CULTURE; Value: GENTAMICIN <=1 S; Status: F Test: URINE CULTURE; Value: NITROFURANTOIN <=16 S; Status: F Test: URINE CULTURE; Value: CEFAZOLIN <=4 S; Status: F Test: URINE CULTURE; Value: LEVOFLOXACIN <=0.12 S; Status: F Test: URINE CULTURE; Value: TOBRAMYCIN <=1 S; Status: F Test: URINE CULTURE; Value: CEFTRIAXONE <=1 S; Status: F Test: URINE CULTURE; Value: CEFTAZIDIME <=1 S; Status: F Test: URINE CULTURE; Value: AMPICILLIN/SULBACTAM >=32 R; Status: F Test: URINE CULTURE; Value: PIPERACILLIN/TAZOBACTAM <=4 S; Status: F Test: URINE CULTURE; Value: AZTREONAM <=1 S; Status: F Test: URINE CULTURE; Value: ERTAPENEM <=0.5 S; Status: F Test: URINE CULTURE; Value: MEROPENEM <=0.25 S; Status: F Test: URINE CULTURE; Value: TIGECYCLINE <=0.5 S; Status: F Test: URINE CULTURE; Value: CEFEPIME <=1 S; Status: F Lab Order: Pt & Aptt; SPEC'M 01/20/17 18:56 Test: PROTHROMBIN TIME; Value: 21.4; Range: 12.3-14.5; Abnormal: Above high normal; Units: SECONDS; Status: F Test: INR; Value: 1.85; Status: F Test: PARTIAL THROMBOPLASTIN TIME; Value: 35.1; Range: 26.6-37.1; Units: SECONDS; Status: F Test Note: ; THERAPUTIC HUMAN INR VALUES INDICATIONS NORMAL RANGES PROPHYLAXIS/TREATMENT OF: VENOUS THROMBOSIS 2.0-3.0 PULMONARY EMBOLISM 2.0-3.0 PREVENTION OF SYSTEMIC EMBOLISM FROM: TISSUE HEART VALVES 2.0-3.0 ACUTE MYOCARDIAL INFARCTION 2.0-3.0 VALVULAR HEART DISEASE 2.0-3.0 ATRIAL FIBRILLATION 2.0-3.0 MECHANICAL VALVES(HIGH RISK) 2.5-3.5 RECURRENT MYOCARDIAL INFARCTION 2.5-3.5 Radiology Order: CT ABD & PELVIS: No Contrast Test: CT ABD & PELVIS: No Contrast REASON FOR EXAMINATION: Renal colic; Clinical: Renal colic.; ; Comparison: 05/24/2011.; ; Findings:; 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 Lung bases demonstrate chronic bibasilar fibroatelectatic changes; similar to prior examination.; ; Liver, spleen, pancreas, bilateral adrenal glands and kidneys are normal for; noncontrast evaluation. The patient is status post cholecystectomy. No; perinephric stranding, hydroureteronephrosis, intrarenal or obstructing ureteral; calculi are identified. IVC filter in stable position. The enteric system is; without obstruction or acute inflammatory process sigmoid diverticula noted; without acute diverticulitis. Pelvis demonstrates normal bladder and evidence; for prior hysterectomy. No ascites. No free air. No obvious adenopathy.; Abdominal aorta without aneurysm. Musculoskeletal structures demonstrate; degenerative changes.; ; Impression:; 1. No acute intra-abdominal or pelvic pathology appreciated.; 2. Chronic elevation to the left hemidiaphragm with changes suggesting prior; diaphragmatic rupture repair.; 3. No free fluid.; 4. Kidneys without hydroureternephrosis, intrarenal or obstructing ureteral; calculi.; ; ; Signed by; Billy Duarte MD 01/20/2017 07:18 P; Outcome: 21:29 CT Study completed. kc3 21:48 Discharge ordered by Provider. cc10 22:04 Discharge Assessment: Patient awake, alert and oriented x 3. No cognitive and/or kc3 functional deficits noted. Patient verbalized understanding of disposition instructions. patient administered narcotics - yes. Pt provided with safe discharge. The following High Risk Discharge criteria are identified: None. Discharged to home via wheelchair. Condition: stable. Discharge instructions given to patient, Instructed on discharge instructions, follow up and referral plans. medication usage, Demonstrated understanding of instructions, medications, Pt was receptive of discharge instructions/ teaching. Prescriptions given X 1. Property :Personal belongings accompany Pt. 22:06 Patient left the ED. kc3 01/22 13:40 Lab/X-ray follow up: Urine culture results reviewed with Gil Gaona NP and no change kcs in treatment needed. Signatures: Dispatcher [employer] EDMS Lynette Whitfield RN RN kcs Danielle Lowe, RN Elmira Loco RN EMIL [facility] Brittany Rachel, Reg Reg gb Daniel Woods Hannah, RN RN hs1 Jo Iverson RN RN mk4 Abhi Hitchcock, PA-C PA-C cc10 Lakia Antoine,EMIL RN ms18 Rylee Jenkins RN RN kc3 Shabana Antoine RN RN shahnaz2 Nicole Bruce2 Corrections: (The following items were deleted from the chart) 01/20 22:06 22:04 Discharge Assessment: Patient awake, alert and oriented x 3. No cognitive and/or kc3 functional deficits noted. Patient verbalized understanding of disposition instructions. patient administered narcotics - no kc3 Chart Complete MTDD
--- NOTE | 2017-01-22 23:06 | EDDOCDS ---
Physician Documentation [facility] Name: Lexi Duarte Age: 66 yrs Sex: Female : 1950 Arrival Date: 01/20/2017 Time: 15:58 Bed I2 / M2 Private MD: Sherman Bailey FPA Disposition: 01/20/17 21:48 Discharged to Home/Self Care. Impression: Cystitis, Nausea and vomiting, Diarrhea, unspecified. - Condition is Stable. - Discharge Instructions: Food Choices to Help Relieve Diarrhea, Adult, Urinary Tract Infection. - Prescriptions for Levaquin 500 mg Oral Tablet - take 1 tablet by ORAL route once daily for 7 days; 7 tablet. - Medication Reconciliation form. - Follow up: Emergency Department; When: As needed. Follow up: Sherman Bailey; When: Call to arrange an appointment; Reason: Wound/Symptom Recheck, Recheck today's complaints, Worsening of conditions, Continuance of care. Follow up: Sherman Bailey; When: Tomorrow; Reason: Wound/Symptom Recheck, Recheck today's complaints, Worsening of conditions, Continuance of care. - Problem is an ongoing problem. - Symptoms have improved. Historical: - Allergies: PENICILLINS (Unknown); codeineI dont remember; Dilantin (Hives); Erythromycin (Vomit); - Home Meds: 1. calcium 500 mg twice a day 2. Coumadin 5 mg M-T-- and 2.5 mg Th and Damon Oral tab 1 tab once daily 3. Carafate 1 gram Oral tab 1 tab 4 times per day 4. Lasix 20 mg Oral tab 1 tab once daily 5. omeprazole 40 mg Oral cpDR 1 cap 2 times per day 6. Percocet 5-325 mg Oral tab I don't take it unless I am desperate 7. Requip 1 mg Oral tab 1 tab daily 8. Ventolin Rotahaler/Rotacaps Inhl as needed 9. Zofran (as hydrochloride) 4 mg Oral tab as needed 10. z-radha 1 tab daily starte yesterday - PMHx: Anemia; DVT; GERD; Hiatal Hernia; Osteoporosis; PE; restless leg syndrome; Tear Film Insufficiency; - PSHx: Cholecystectomy; Breast Reduction; Hysterectomy; HERNIA REPAIR; Appendectomy; VIJAY FILTER 2005; - Social history: Smoking status: Patient states former smoker of tobacco. No barriers to communication noted, The patient speaks fluent Ethiopian. - Family history: Not pertinent. - : The pt / caregiver states he / she is on anticoagulants: coumadin. Home medication list is obtained from the patient, [employer] import data. - Exposure Risk Screening:: None identified. Vital Signs: 01/20 16:02 BP 90 / 55; Pulse 89; Resp 16; Temp 100.6(O); Pulse Ox 97% ; Weight 62.6 kg / 138.01 lr2 lbs (R); Height 5 ft. 2 in. (157.48 cm) (R); Pain 8/10; 18:09 BP 103 / 64; Pulse 71; Resp 16; Temp 98.1; Pulse Ox 96% on R/A; lr2 19:17 BP 106 / 69; Pulse 72; Pulse Ox 94% ; Pain 3/10; kc3 19:18 BP 106 / 69; Pulse 72; Resp 18; Pulse Ox 94% on R/A; Pain 3/10; kc3 21:28 BP 134 / 71 Supine; Pulse 96; kc3 21:28 BP 141 / 79 Sitting; Pulse 69; kc3 21:28 BP 129 / 81 Standing; Pulse 73; kc3 22:04 BP 115 / 73; Pulse 65; Resp 18; Temp 97.2(O); Pulse Ox 98% on R/A; kc3 16:02 Body Mass Index 25.24 (62.60 kg, 157.48 cm) lr2 MDM: 16:45 NS 0.9% 1000 ml IV at bolus once ordered. cc10 16:45 Ondansetron 4 mg IVP once ordered. cc10 16:45 IV Saline Lock ordered. cc10 16:45 Undress patient appropriately for examination ordered. cc10 16:45 morphine 2 mg IVP once ordered. cc10 16:45 Stool samples ordered. cc10 16:46 Basic Metabolic Profile Ordered. EDMS 16:46 CBC with Diff Ordered. EDMS 16:46 Lipase Ordered. EDMS 16:46 Liver Profile Ordered. EDMS 16:46 Urinalysis Ordered. EDMS 16:46 Urine Culture Ordered. EDMS 16:47 NOTHING BY MOUTH+DIET ordered. EDMS 16:48 GASTROINTESTINAL (GI) PANEL Ordered. EDMS 17:53 Financial registration complete. zo 17:56 Basic Metabolic Profile Reviewed. cc10 17:56 CBC with Diff Reviewed. cc10 17:56 Liver Profile Reviewed. cc10 17:56 Urinalysis Reviewed. cc10 17:56 Lipase Reviewed. cc10 17:57 [facility] Agreement was scanned into [employer] and attached to record. zo 18:26 BED REQUEST+ADM ordered. EDMS 18:37 morphine 2 mg IVP once ordered. cc10 18:37 Pt & Aptt Ordered. EDMS 18:37 CT ABD & PELVIS: No Contrast Ordered. EDMS 19:51 NS 0.9% 1000 ml IV at bolus once ordered. cc10 20:05 levofloxacin 500 mg PO once ordered. cc10 20:05 GI Cocktail - (Alum-Mag Hydroxide-Simeth 30 ml, Lidocaine 10 ml, Hyoscyamine 10 ml) PO cc10 once; Pre-mixed 50mL unit dose ordered. 21:00 Orthostatic VS ordered. cc10 21:00 Ambulate Patient to Assess Patient Safety ordered. cc10 01/21 12:53 T-Sheet-- Draft Copy was scanned into [employer] and attached to record. gb 12:53 Radiology Report was scanned into [employer] and attached to record. gb Administered Medications: 01/20 17:08 Drug: morphine 2 mg [morphine 2 mg/mL intravenous cartridge (1 mL)] Route: IVP; Site: hs1 left antecubital; 17:09 Drug: NS 0.9% 1000 ml [sodium chloride 0.9 % intravenous solution] Route: IV; Rate: hs1 bolus; Site: left antecubital; 20:03 Follow up: IV Status: Completed infusion; IV Intake: 1000ml kas2 17:09 Drug: Ondansetron 4 mg [ondansetron HCl 2 mg/mL intravenous solution (2 mL)] Route: hs1 IVP; Site: left antecubital; 18:57 Drug: morphine 2 mg [morphine 2 mg/mL intravenous cartridge (1 mL)] Route: IVP; Site: hs1 left antecubital; 19:17 Follow up: BP 106 / 69; Pulse 72 bpm; Pulse Ox 94% ; Pain 3/10 Adult kc3 20:03 Drug: NS 0.9% 1000 ml [sodium chloride 0.9 % intravenous solution] Route: IV; Rate: kas2 bolus; Site: left antecubital; 20:24 Drug: levofloxacin 500 mg [levofloxacin 500 mg tablet (1 tabs)] Route: PO; kas2 20:25 Drug: GI Cocktail - (Alum-Mag Hydroxide-Simeth Suspension 225 mg-200 mg-25 mg/5 mL 30 kas2 ml, Lidocaine Liquid 2 % 10 ml, Hyoscyamine Liquid 10 ml) Route: PO; Signatures: Dispatcher [employer] EDMS Lynette Whitfield, RN RN kcs Brittany Rachel, Reg Reg gb Daniel Woods Colin, PA-C PA-C cc10 Rylee Jenkins RN RN kc3 Ruth Albrecht RN hs1 Shabana Antoine RN kas2 The chart was reviewed and I authenticate all verbal orders and agree with the evaluation and treatment provided.Corrections: (The following items were deleted from the chart) 16:48 16:46 GASTROINTESTINAL (GI) PANEL+DONNA ordered. EDMS EDMS Attachments: 17:57 [facility] Payment Agreement zo 01/21 12:53 T-Sheet-- Draft Copy gb Chart Complete MTDD
--- NOTE | 2017-01-22 23:06 | EDDOCDS ---
Physician Documentation [facility] Name: Lexi Duarte Age: 66 yrs Sex: Female : 1950 Arrival Date: 01/20/2017 Time: 15:58 Bed I2 / M2 Private MD: Sherman Bailey FPA Disposition: 01/20/17 21:48 Discharged to Home/Self Care. Impression: Cystitis, Nausea and vomiting, Diarrhea, unspecified. - Condition is Stable. - Discharge Instructions: Food Choices to Help Relieve Diarrhea, Adult, Urinary Tract Infection. - Prescriptions for Levaquin 500 mg Oral Tablet - take 1 tablet by ORAL route once daily for 7 days; 7 tablet. - Medication Reconciliation form. - Follow up: Emergency Department; When: As needed. Follow up: Sherman Bailey; When: Call to arrange an appointment; Reason: Wound/Symptom Recheck, Recheck today's complaints, Worsening of conditions, Continuance of care. Follow up: Sherman Bailey; When: Tomorrow; Reason: Wound/Symptom Recheck, Recheck today's complaints, Worsening of conditions, Continuance of care. - Problem is an ongoing problem. - Symptoms have improved. Historical: - Allergies: PENICILLINS (Unknown); codeineI dont remember; Dilantin (Hives); Erythromycin (Vomit); - Home Meds: 1. calcium 500 mg twice a day 2. Coumadin 5 mg M-T-- and 2.5 mg Th and Damon Oral tab 1 tab once daily 3. Carafate 1 gram Oral tab 1 tab 4 times per day 4. Lasix 20 mg Oral tab 1 tab once daily 5. omeprazole 40 mg Oral cpDR 1 cap 2 times per day 6. Percocet 5-325 mg Oral tab I don't take it unless I am desperate 7. Requip 1 mg Oral tab 1 tab daily 8. Ventolin Rotahaler/Rotacaps Inhl as needed 9. Zofran (as hydrochloride) 4 mg Oral tab as needed 10. z-radha 1 tab daily starte yesterday - PMHx: Anemia; DVT; GERD; Hiatal Hernia; Osteoporosis; PE; restless leg syndrome; Tear Film Insufficiency; - PSHx: Cholecystectomy; Breast Reduction; Hysterectomy; HERNIA REPAIR; Appendectomy; VIJAY FILTER 2005; - Social history: Smoking status: Patient states former smoker of tobacco. No barriers to communication noted, The patient speaks fluent Finnish. - Family history: Not pertinent. - : The pt / caregiver states he / she is on anticoagulants: coumadin. Home medication list is obtained from the patient, [employer] import data. - Exposure Risk Screening:: None identified. Vital Signs: 01/20 16:02 BP 90 / 55; Pulse 89; Resp 16; Temp 100.6(O); Pulse Ox 97% ; Weight 62.6 kg / 138.01 lr2 lbs (R); Height 5 ft. 2 in. (157.48 cm) (R); Pain 8/10; 18:09 BP 103 / 64; Pulse 71; Resp 16; Temp 98.1; Pulse Ox 96% on R/A; lr2 19:17 BP 106 / 69; Pulse 72; Pulse Ox 94% ; Pain 3/10; kc3 19:18 BP 106 / 69; Pulse 72; Resp 18; Pulse Ox 94% on R/A; Pain 3/10; kc3 21:28 BP 134 / 71 Supine; Pulse 96; kc3 21:28 BP 141 / 79 Sitting; Pulse 69; kc3 21:28 BP 129 / 81 Standing; Pulse 73; kc3 22:04 BP 115 / 73; Pulse 65; Resp 18; Temp 97.2(O); Pulse Ox 98% on R/A; kc3 16:02 Body Mass Index 25.24 (62.60 kg, 157.48 cm) lr2 MDM: 16:45 NS 0.9% 1000 ml IV at bolus once ordered. cc10 16:45 Ondansetron 4 mg IVP once ordered. cc10 16:45 IV Saline Lock ordered. cc10 16:45 Undress patient appropriately for examination ordered. cc10 16:45 morphine 2 mg IVP once ordered. cc10 16:45 Stool samples ordered. cc10 16:46 Basic Metabolic Profile Ordered. EDMS 16:46 CBC with Diff Ordered. EDMS 16:46 Lipase Ordered. EDMS 16:46 Liver Profile Ordered. EDMS 16:46 Urinalysis Ordered. EDMS 16:46 Urine Culture Ordered. EDMS 16:47 NOTHING BY MOUTH+DIET ordered. EDMS 16:48 GASTROINTESTINAL (GI) PANEL Ordered. EDMS 17:53 Financial registration complete. zo 17:56 Basic Metabolic Profile Reviewed. cc10 17:56 CBC with Diff Reviewed. cc10 17:56 Liver Profile Reviewed. cc10 17:56 Urinalysis Reviewed. cc10 17:56 Lipase Reviewed. cc10 17:57 [facility] Payment Agreement was scanned into [employer] and attached to record. zo 18:26 BED REQUEST+ADM ordered. EDMS 18:37 morphine 2 mg IVP once ordered. cc10 18:37 Pt & Aptt Ordered. EDMS 18:37 CT ABD & PELVIS: No Contrast Ordered. EDMS 19:51 NS 0.9% 1000 ml IV at bolus once ordered. cc10 20:05 levofloxacin 500 mg PO once ordered. cc10 20:05 GI Cocktail - (Alum-Mag Hydroxide-Simeth 30 ml, Lidocaine 10 ml, Hyoscyamine 10 ml) PO cc10 once; Pre-mixed 50mL unit dose ordered. 21:00 Orthostatic VS ordered. cc10 21:00 Ambulate Patient to Assess Patient Safety ordered. cc10 01/21 12:53 T-Sheet-- Draft Copy was scanned into [employer] and attached to record. gb 12:53 Radiology Report was scanned into [employer] and attached to record. gb Administered Medications: 01/20 17:08 Drug: morphine 2 mg [morphine 2 mg/mL intravenous cartridge (1 mL)] Route: IVP; Site: hs1 left antecubital; 17:09 Drug: NS 0.9% 1000 ml [sodium chloride 0.9 % intravenous solution] Route: IV; Rate: hs1 bolus; Site: left antecubital; 20:03 Follow up: IV Status: Completed infusion; IV Intake: 1000ml kas2 17:09 Drug: Ondansetron 4 mg [ondansetron HCl 2 mg/mL intravenous solution (2 mL)] Route: hs1 IVP; Site: left antecubital; 18:57 Drug: morphine 2 mg [morphine 2 mg/mL intravenous cartridge (1 mL)] Route: IVP; Site: hs1 left antecubital; 19:17 Follow up: BP 106 / 69; Pulse 72 bpm; Pulse Ox 94% ; Pain 3/10 Adult kc3 20:03 Drug: NS 0.9% 1000 ml [sodium chloride 0.9 % intravenous solution] Route: IV; Rate: kas2 bolus; Site: left antecubital; 20:24 Drug: levofloxacin 500 mg [levofloxacin 500 mg tablet (1 tabs)] Route: PO; kas2 20:25 Drug: GI Cocktail - (Alum-Mag Hydroxide-Simeth Suspension 225 mg-200 mg-25 mg/5 mL 30 kas2 ml, Lidocaine Liquid 2 % 10 ml, Hyoscyamine Liquid 10 ml) Route: PO; Signatures: Dispatcher [employer] EDMS Lynette Whitfield, RN RN kcs Brittany Rachel, Reg Reg gb Daniel Woods Colin, PA-C PA-C cc10 Rylee Jenkins RN RN kc3 Ruth Albrecht RN hs1 Shabana Antoine RN kas2 The chart was reviewed and I authenticate all verbal orders and agree with the evaluation and treatment provided.Corrections: (The following items were deleted from the chart) 16:48 16:46 GASTROINTESTINAL (GI) PANEL+DONNA ordered. EDMS EDMS Attachments: 17:57 [facility] Payment Agreement zo 01/21 12:53 T-Sheet-- Draft Copy gb Chart Complete MTDD
== END 2017-01-20 22:06 | disposition home or self-care (01) ==
LOC: M ED 15:58
DX: N30.90 Cystitis, unspecified without hematuria (principal); R11.2 Nausea with vomiting, unspecified; R19.7 Diarrhea, unspecified; M54.5 Low back pain; J44.9 Chronic obstructive pulmonary disease, unspecified; K44.9 Diaphragmatic hernia without obstruction or gangrene; G25.81 Restless legs syndrome; D64.9 Anemia, unspecified; K21.9 Gastro-esophageal reflux disease without esophagitis; M81.0 Age-related osteoporosis without current pathological fracture; Z86.718 Personal history of other venous thrombosis and embolism; Z86.711 Personal history of pulmonary embolism; Z87.891 Personal history of nicotine dependence; Z88.0 Allergy status to penicillin; Z88.5 Allergy status to narcotic agent; Z88.8 Allergy status to other drugs, medicaments and biological substances; Z88.1 Allergy status to other antibiotic agents; Z79.899 Other long term (current) drug therapy; Z79.01 Long term (current) use of anticoagulants; Z79.2 Long term (current) use of antibiotics
CPT/HCPCS: 36415; 74176; 80048; 80076; 81001; 83690; 85025; 85610; 85730; 87088; 87186; 96361; 96374; 96375; 96376; 99284; J2405

== ENCOUNTER → 2017-02-09 | Outpatient (REF) | payer MEDICARE ==
[~2017-02-09] MED LIST changes: +CO Q1CAP PO; +DOXE10CA PO; +PRESCAP6 PO; +ZITH250T PO
[2017-02-09 19:05] LABS: CALCIUM OXALATE CRYSTALS LARGE
== END ==
LOC: M SMT 16:53
PROVIDERS: ATTEND Nurse Practitioner Family
DX: R10.9 Unspecified abdominal pain (principal)
CPT/HCPCS: 51798; 81001; 87086; G0463

== ENCOUNTER 2017-08-07 16:01 | Emergency (ER) | payer MEDICARE ==
[~2017-08-07] VITALS: Ht 154.9 cm; Wt 65.5 kg
[~2017-08-07 16:01] MED LIST changes: -CARA1TAB2 PO; +CARA1TAB6 PO; +CO Q100C PO; -CO Q1CAP PO; -COUM2.5T11 PO; +COUM2.5T17 PO; -IBUP200C PO; +IBUP200C10 PO; +LEVO500T3 PO; -LEVO500T32 PO; +PERC5TAB12 PO; -PERC5TAB6 PO
[2017-08-07 16:02] VITALS: BP 132/92
[2017-08-07] MEDS ORDERED: FOLI800C PO (16:17)
[2017-08-07] MEDS ORDERED: MAGN250T3 PO (16:17)
[2017-08-07] MEDS ORDERED: BACL10TA2 PO (16:17)
[2017-08-07] MEDS ORDERED: CVS20TAB PO (16:17)
[2017-08-07] MEDS ORDERED: MULTCAP11 PO (16:17)
[2017-08-07] MEDS ORDERED: HYDR-2808 PO (16:17)
[2017-08-07] MEDS ORDERED: PERC5TAB12 PO (17:24)
[2017-08-07] MEDS ORDERED: CLEO300C2 PO (17:24)
== END 2017-08-07 17:32 | disposition home or self-care (01) ==
LOC: M ED 16:01
DX: L03.116 Cellulitis of left lower limb (principal); Z79.01 Long term (current) use of anticoagulants

== ENCOUNTER → 2017-09-11 | Outpatient (CLI) | payer MEDICARE ==
[~2017-09-11] MED LIST changes: +BACL10TA2 PO; +CLEO300C2 PO; +CVS20TAB PO; +FOLI800C PO; +HYDR-2808 PO; +MAGN250T3 PO; +MULTCAP11 PO
--- NOTE | 2017-09-11 17:13 | REP ---
Duplex extremity venous ultrasound: Left lower extremity: History: History of left leg DVT. Patient on Coumadin. Question venous insufficiency. Findings: The deep veins are abnormal consistent with chronic DVT showing increased echogenicity and incomplete compressibility from the common femoral vein through the popliteal vein. No occlusive changes. Reflux evaluation. Reflux is seen in the deep system as well as in the greater saphenous vein proximally through distally. Reflux is observed in the lesser saphenous vein as well. Reflux is greater than 0.5 seconds in duration, mainly 4.7 seconds at the greater saphenous vein proximally, 3.1 seconds at midthigh, and 1.55 seconds at the knee. Lesser saphenous vein reflux is 2.8 seconds in duration. The lesser saphenous vein measures 7.7 mm in AP dimension. The greater saphenous vein measures 6.7 mm proximally, 5.9 mm at mid thigh, and 3.5 mm distally. Impression: Evidence of chronic DVT left lower extremity deep veins. Significant superficial and deep venous system reflux observed. Signed by Arjun Plaza MD 09/11/2017 07:23 P
== END ==
LOC: M RAD 13:56
PROVIDERS: ATTEND Surgery Vascular Surgery
DX: I87.2 Venous insufficiency (chronic) (peripheral) (principal); I83.892 Varicose veins of left lower extremity with other complications

== ENCOUNTER → 2017-10-08 | Outpatient (CLI) | payer MEDICARE ==
[2017-10-08 18:58] LABS: ANION GAP 5 MEQ/L (8-16); BLOOD UREA NITROGEN 15 MG/DL (7-18); CALCIUM LEVEL 8.8 MG/DL (8.8-10.2); CARBON DIOXIDE LEVEL 31 MEQ/L (21-32); CHLORIDE LEVEL 103 MEQ/L (98-107); GLOMERULAR FILTRATION RATE > 60.0 (>45); GLUCOSE, FASTING 122 MG/DL (80-110); SODIUM LEVEL 139 MEQ/L (136-145)
[2017-10-08 19:40] LABS: MEAN CORPUSCULAR HEMOGLOBIN 29.6 pg (27.0-33.0); MEAN CORPUSCULAR HGB CONC 31.6 g/dl (32.0-36.5); MEAN CORPUSCULAR VOLUME 93.7 fl (80.0-96.0); RED CELL DISTRIBUTION WIDTH 13.8 % (11.5-14.5); WHITE BLOOD COUNT 6.5 10^3/uL (4.0-10.0)
[2017-10-08 19:41] LABS: CBCMD ORDERED? YES (YES)
[2017-10-08 21:36] LABS: EOSINOPHILS 1 % (0-5)
== END ==
LOC: M SMT 14:21
PROVIDERS: ATTEND Surgery Vascular Surgery
DX: I87.2 Venous insufficiency (chronic) (peripheral) (principal); M35.9 Systemic involvement of connective tissue, unspecified

== ENCOUNTER 2017-10-28 14:26 | Day surgery (SDC) | payer MEDICARE ==
[~2017-10-28] VITALS: Ht 154.9 cm; Wt 66.1 kg
[2017-10-28] MEDS ORDERED: LR 1,000 ML IV ONE (14:45)
[2017-10-28 15:48] LABS: INR 2.03
[2017-10-28] MEDS ORDERED: LIDOCAINE 1% SDV INJ 30 ML VIAL As Ordered ONE (16:59)
[2017-10-28] MEDS ORDERED: LIDOCAINE W/EPINEPHRINE 1% 20ML VIAL As Ordered ONE (16:59)
[2017-10-28] MEDS ORDERED: PROPOFOL 200 MG/20 ML VIAL As Ordered ONE (17:27)
[2017-10-28] MEDS ORDERED: LIDOCAINE 2% INJ 100 MG/5 ML SDV (FOR ANES.) As Ordered ONE (17:27)
[2017-10-28] MEDS ORDERED: fentaNYL 100 MCG/2 ML INJECTION (J3010) As Ordered ONE (17:27)
[2017-10-28] MEDS ORDERED: MIDAZOLAM INJ 2 MG/2 ML VIAL (J2250) As Ordered ONE (17:27)
[2017-10-28] MEDS ORDERED: SEVOFLURANE INHAL SOLN 250 ML BTL As Ordered ONE (17:32)
[2017-10-28] MEDS ORDERED: DESFLURANE 240 ML INHALANT As Ordered ONE (17:35)
[2017-10-28] MEDS ORDERED: PERCOCET 5MG/325MG TAB As Ordered ONE (18:51)
[2017-10-28] MEDS ORDERED: PERCOCET 5MG/325MG TAB PO ONE (19:00)
[2017-10-28 19:22] VITALS: BP 150/77
--- NOTE | 2017-11-20 10:59 | RO ---
DATE OF PROCEDURE: 10/28/2017 PREPROCEDURE DIAGNOSES: Left lower extremity deep venous thrombosis (DVT); left greater saphenous vein venous valvular insufficiency; left lesser saphenous vein venous valvular insufficiency; deep venous valvular insufficiency in the left lower extremity; left lower extremity swelling, pain, and ulceration. POSTPROCEDURE DIAGNOSES: Left lower extremity deep venous thrombosis (DVT); left greater saphenous vein venous valvular insufficiency; left lesser saphenous vein venous valvular insufficiency; deep venous valvular insufficiency in the left lower extremity; left lower extremity swelling, pain, and ulceration. PROCEDURE: Ultrasound-guided left greater saphenous vein radiofrequency ablation. ATTENDING SURGEON: Dr. Mae Domínguez INJECTION MOLDING ENGINEER: None. ANESTHESIA: Local monitored anesthesia care (MAC). INDICATION: Patient is a 67-year-old female with severe left lower extremity venous valvular insufficiency with ulceration and symptoms of pain and swelling who was evaluated and felt to be a good candidate for a left greater saphenous vein radiofrequency ablation. Patient does have a history of previous pulmonary embolus and left common femoral, superficial femoral, and popliteal vein DVT, but on her ultrasound evaluation for venous valvular insufficiency, was noted that she only had thickening of the vein dunlpa and no residual thrombus remaining. Risks, benefits, and alternative treatment options were discussed with the patient. ESTIMATED BLOOD LOSS: 7 mL. IV FLUIDS: 600 mL. COMPLICATIONS: None. DRAINS: None. SPECIMENS: None. IMPLANTS: None. DESCRIPTION OF PROCEDURE: Patient was taken to the operating room, placed supine on the operating room table, and then prepped and draped in the standard surgical fashion. The left greater saphenous vein was cannulated in the below-knee region using ultrasound guidance. With a micropuncture needle, micropuncture wire was advanced through the micropuncture needle which was subsequently upsized to a #7-Tamazight sheath. The radiofrequency ablation catheter was placed 2 cm distal to the saphenofemoral junction, and tumescent solution was circumferentially injected around the greater saphenous vein, after which, the greater saphenous vein was ablated from 2 cm distal to the saphenofemoral junction to the entry site in the below-knee region. Catheters and wires removed. Dressings were then applied. Patient tolerated the procedure well. All instrument, sponge, and needle counts were correct at the end of the case. There were no complications. Dr. Domínguez was present for and directed the entire case. Patient was transferred to the recovery room and subsequently discharged in stable condition.
== END 2017-10-28 19:32 | disposition home or self-care (01) ==
LOC: M SDC 14:26
PROVIDERS: ATTEND Surgery Vascular Surgery
DX: I82.402 Acute embolism and thrombosis of unspecified deep veins of left lower extremity (principal); I83.228 Varicose veins of left lower extremity with both ulcer of other part of lower extremity and inflammation; R60.0 Localized edema; L97.828 Non-pressure chronic ulcer of other part of left lower leg with other specified severity; K21.9 Gastro-esophageal reflux disease without esophagitis; J45.909 Unspecified asthma, uncomplicated; M12.9 Arthropathy, unspecified; K44.9 Diaphragmatic hernia without obstruction or gangrene; R06.83 Snoring; Z88.0 Allergy status to penicillin; Z88.1 Allergy status to other antibiotic agents; Z88.5 Allergy status to narcotic agent; Z88.8 Allergy status to other drugs, medicaments and biological substances; Z79.899 Other long term (current) drug therapy; Z79.01 Long term (current) use of anticoagulants; Z86.718 Personal history of other venous thrombosis and embolism; Z85.828 Personal history of other malignant neoplasm of skin; Z90.710 Acquired absence of both cervix and uterus
CPT/HCPCS: 36415; 36475; 85610; J2250; J3010

== ENCOUNTER → 2017-11-04 | Outpatient (CLI) | payer MEDICARE | LOC: M SMT 14:35 | PROVIDERS: ATTEND Internal Medicine Endocrinology, Diabetes & Metabolism | DX: M81.0 Age-related osteoporosis without current pathological fracture (principal) ==

== ENCOUNTER → 2017-11-11 | Outpatient (CLI) | payer MEDICARE ==
--- NOTE | 2017-11-11 10:32 | REP ---
LEFT LOWER EXTREMITY DUPLEX DOPPLER VENOUS ULTRASOUND: Real-time compression and duplex Doppler interrogation of left lower extremity deep venous system is performed status post left greater saphenous vein ablation. Left greater saphenous vein is occluded as expected. There is no acute deep venous thrombosis involving common femoral, superficial femoral, or popliteal veins with chronic wall thickening again noted diffusely. Signed by Rafael Wetzel MD 11/12/2017 09:07 A
== END ==
LOC: M RAD 08:44
PROVIDERS: ATTEND Surgery Vascular Surgery
DX: I87.2 Venous insufficiency (chronic) (peripheral) (principal); Z79.01 Long term (current) use of anticoagulants; Z98.890 Other specified postprocedural states

== ENCOUNTER → 2017-12-10 | Outpatient (REF) | payer MEDICARE | LOC: M LAB REF 19:00 | DX: C44.509 Unspecified malignant neoplasm of skin of other part of trunk (principal); C44.222 Squamous cell carcinoma of skin of right ear and external auricular canal | CPT/HCPCS: 88305 ==

== ENCOUNTER → 2017-12-23 | Outpatient (REF) | payer MEDICARE ==
[2017-12-23 19:46] LABS: CALCIUM LEVEL 8.5 MG/DL (8.8-10.2)
[2017-12-23 19:59] LABS: TOTAL 25(OH) VITAMIN D 26.2 NG/ML (30.0-100.0)
== END ==
LOC: M LABDRAW1 15:02
DX: M81.0 Age-related osteoporosis without current pathological fracture (principal)
CPT/HCPCS: 82310

== ENCOUNTER → 2018-01-07 | Outpatient (REF) | payer MEDICARE | LOC: M LAB REF 01-08 13:29 | DX: C44.222 Squamous cell carcinoma of skin of right ear and external auricular canal (principal) | CPT/HCPCS: 88305 ==

== ENCOUNTER → 2018-01-15 | Outpatient (REF) | payer OTHER ==
[2018-01-15 17:29] LABS: CALCIUM LEVEL 8.2 MG/DL (8.8-10.2)
== END ==
LOC: M LABDRAW1 15:49
DX: M81.0 Age-related osteoporosis without current pathological fracture (principal)
CPT/HCPCS: 82310

== ENCOUNTER 2018-02-19 11:38 | Emergency (ER) | payer OTHER ==
[2018-02-19] MEDS: ONDANSETRON 4MG/2ML VIAL (J2405) IV ×2 (12:26→12:57)
[2018-02-19] MEDS: MORPHINE 4 MG/ML 1ML VIAL (J2270) IV ×2 (12:26→13:45)
[2018-02-19 14:24] LABS: INR 1.68; PROTHROMBIN TIME 20.3 SECONDS (12.4-14.5)
[2018-02-19] MEDS ORDERED: ONDANSETRON 4MG/2ML VIAL (J2405) IV (14:30)
[2018-02-19] MEDS ORDERED: MORPHINE 4 MG/ML 1ML VIAL (J2270) IV (14:30)
[2018-02-19] MEDS: NS 1,000 ML IV (14:35)
[2018-02-19 14:54] LABS: HEMATOCRIT 38.1 % (36.0-47.0); HEMOGLOBIN 12.3 g/dl (12.0-16.0); MEAN CORPUSCULAR HEMOGLOBIN 30.1 pg (27.0-33.0); MEAN CORPUSCULAR HGB CONC 32.3 g/dl (32.0-36.5); MEAN CORPUSCULAR VOLUME 93.4 fl (80.0-96.0); PLATELET COUNT, AUTOMATED 211 10^3/uL (150-450); RED BLOOD COUNT 4.08 10^6/uL (4.00-5.40); RED CELL DISTRIBUTION WIDTH 14.9 % (11.5-14.5); WHITE BLOOD COUNT 4.5 10^3/uL (4.0-10.0)
[2018-02-19] MEDS ORDERED: LIDOCAINE 1% MDV 20ML VIAL As Ordered (15:17)
[2018-02-19] MEDS ORDERED: LIDOCAINE 1% SDV INJ 30 ML VIAL SC (15:30)
[2018-02-19] MEDS ORDERED: LIDOCAINE 1% MDV 20ML VIAL SC (15:30)
== END 2018-02-19 16:45 | disposition home or self-care (01) ==
LOC: M ED 11:38
DX: S70.01XA Contusion of right hip, initial encounter (principal); S50.01XA Contusion of right elbow, initial encounter; S52.571A Other intraarticular fracture of lower end of right radius, initial encounter for closed fracture; W01.0XXA Fall on same level from slipping, tripping and stumbling without subsequent striking against object, initial encounter; Y92.219 Unspecified school as the place of occurrence of the external cause; Y93.89 Activity, other specified; Y99.0 Civilian activity done for income or pay; J44.9 Chronic obstructive pulmonary disease, unspecified; I73.00 Raynaud's syndrome without gangrene; K58.9 Irritable bowel syndrome, unspecified; F17.200 Nicotine dependence, unspecified, uncomplicated; Z79.01 Long term (current) use of anticoagulants; Z79.899 Other long term (current) drug therapy; Z88.8 Allergy status to other drugs, medicaments and biological substances; Z88.1 Allergy status to other antibiotic agents; Z88.5 Allergy status to narcotic agent; Z88.0 Allergy status to penicillin; Z86.718 Personal history of other venous thrombosis and embolism; Z98.890 Other specified postprocedural states; Z87.81 Personal history of (healed) traumatic fracture; Z86.711 Personal history of pulmonary embolism; Z86.79 Personal history of other diseases of the circulatory system
CPT/HCPCS: J2270

== ENCOUNTER 2018-02-24 13:48 | Day surgery (SDC) | payer OTHER ==
[2018-02-24] MEDS: LR 1,000 ML IV ×2 (14:55→16:45)
[2018-02-24] MEDS ORDERED: fentaNYL 100 MCG/2 ML INJECTION (J3010) As Ordered ×4 (15:28→16:38)
[2018-02-24] MEDS ORDERED: LIDOCAINE 2% INJ 100 MG/5 ML SDV (FOR ANES.) As Ordered (15:28)
[2018-02-24] MEDS ORDERED: METOCLOPRAMIDE INJ 10MG/2ML VIAL (J2765) As Ordered (15:28)
[2018-02-24] MEDS ORDERED: PROPOFOL 200 MG/20 ML VIAL As Ordered (15:28)
[2018-02-24] MEDS ORDERED: MIDAZOLAM INJ 2 MG/2 ML VIAL (J2250) As Ordered (15:28)
[2018-02-24] MEDS ORDERED: ONDANSETRON 4MG/2ML VIAL (J2405) As Ordered (15:29)
[2018-02-24] MEDS ORDERED: PERCOCET 5MG/325MG TAB As Ordered (16:38)
[2018-02-24] MEDS ORDERED: ONDANSETRON 4MG/2ML VIAL (J2405) IV (16:45)
[2018-02-24] MEDS: fentaNYL 100 MCG/2 ML INJECTION (J3010) IV ×4 (16:45→17:12)
[2018-02-24] MEDS ORDERED: METOCLOPRAMIDE INJ 10MG/2ML VIAL (J2765) IV (16:45)
[2018-02-24] MEDS ORDERED: LR 1,000 ML IV (16:45)
[2018-02-24] MEDS: PERCOCET 5MG/325MG TAB PO ×2 (16:45→17:15)
[2018-02-24] MEDS ORDERED: NORCO, ANEXSIA 5/325MG TABLET (HYDROcodone/ACETAMINOPHEN) PO ×2 (17:00)
[2018-02-24] MEDS ORDERED: MORPHINE 4 MG/ML 1ML VIAL (J2270) IV (17:00)
== END 2018-02-24 19:46 | disposition home or self-care (01) ==
LOC: M SDC 19:46
DX: S52.511A Displaced fracture of right radial styloid process, initial encounter for closed fracture (principal); Z88.0 Allergy status to penicillin; Z88.1 Allergy status to other antibiotic agents; Z79.899 Other long term (current) drug therapy; Z79.01 Long term (current) use of anticoagulants; Z86.718 Personal history of other venous thrombosis and embolism; W01.0XXA Fall on same level from slipping, tripping and stumbling without subsequent striking against object, initial encounter; Y92.219 Unspecified school as the place of occurrence of the external cause; Y93.89 Activity, other specified; Y99.0 Civilian activity done for income or pay
CPT/HCPCS: 25605

== ENCOUNTER → 2018-03-29 | Outpatient (REF) | payer OTHER ==
[2018-03-29 13:05] LABS: ANION GAP 8 MEQ/L (8-16); BLOOD UREA NITROGEN 18 MG/DL (7-18); CALCIUM LEVEL 8.8 MG/DL (8.8-10.2); CARBON DIOXIDE LEVEL 28 MEQ/L (21-32); CHLORIDE LEVEL 107 MEQ/L (98-107); CREATININE FOR GFR 0.61 MG/DL (0.55-1.30); GLOMERULAR FILTRATION RATE > 60.0 (>45); GLUCOSE, FASTING 83 MG/DL (70-100); POTASSIUM SERUM 3.9 MEQ/L (3.5-5.1); SODIUM LEVEL 143 MEQ/L (136-145)
== END ==
LOC: M LABDRAW1 10:42
DX: E83.51 Hypocalcemia (principal)
CPT/HCPCS: 82306

== ENCOUNTER → 2018-04-30 | Outpatient (CLI) | payer OTHER | LOC: M RAD 09:01 | DX: I87.393 Chronic venous hypertension (idiopathic) with other complications of bilateral lower extremity (principal) | CPT/HCPCS: 93970 ==

== ENCOUNTER 2018-05-11 10:43 | Outpatient (RCR) | payer OTHER | END 2018-05-29 | LOC: M OT 10:43 | DX: Z51.89 Encounter for other specified aftercare (principal); S62.101D Fracture of unspecified carpal bone, right wrist, subsequent encounter for fracture with routine healing; X58.XXXD Exposure to other specified factors, subsequent encounter; Y92.9 Unspecified place or not applicable; Y93.9 Activity, unspecified; Y99.9 Unspecified external cause status; Z79.01 Long term (current) use of anticoagulants; Z79.899 Other long term (current) drug therapy; Z88.1 Allergy status to other antibiotic agents; Z88.5 Allergy status to narcotic agent; Z88.0 Allergy status to penicillin | CPT/HCPCS: 97110 ==

== ENCOUNTER → 2018-05-21 | Outpatient (CLI) | payer OTHER ==
[2018-05-21 16:27] LABS: ANION GAP 9 MEQ/L (8-16); BLOOD UREA NITROGEN 22 MG/DL (7-18); CALCIUM LEVEL 8.8 MG/DL (8.8-10.2); CARBON DIOXIDE LEVEL 31 MEQ/L (21-32); CHLORIDE LEVEL 102 MEQ/L (98-107); CREATININE FOR GFR 0.73 MG/DL (0.55-1.30); GLOMERULAR FILTRATION RATE > 60.0 (>45); GLUCOSE, FASTING 64 MG/DL (70-100); POTASSIUM SERUM 4.4 MEQ/L (3.5-5.1); SODIUM LEVEL 142 MEQ/L (136-145)
== END ==
LOC: M SMT 13:58
DX: M81.0 Age-related osteoporosis without current pathological fracture (principal)
CPT/HCPCS: 80048

== ENCOUNTER 2018-06-03 10:31 | Outpatient (RCR) | payer OTHER | END 2018-06-29 | LOC: M OT 10:31 | DX: Z51.89 Encounter for other specified aftercare (principal); S62.101D Fracture of unspecified carpal bone, right wrist, subsequent encounter for fracture with routine healing; X58.XXXD Exposure to other specified factors, subsequent encounter; Y92.9 Unspecified place or not applicable; Y93.9 Activity, unspecified; Y99.9 Unspecified external cause status; Z79.01 Long term (current) use of anticoagulants; Z79.899 Other long term (current) drug therapy; Z88.1 Allergy status to other antibiotic agents; Z88.5 Allergy status to narcotic agent; Z88.0 Allergy status to penicillin | CPT/HCPCS: 97110 ==

== ENCOUNTER → 2018-06-10 | Outpatient (REF) | payer OTHER | LOC: M LAB REF 13:53 | DX: C44.222 Squamous cell carcinoma of skin of right ear and external auricular canal (principal) | CPT/HCPCS: 88305 ==

== ENCOUNTER 2018-06-30 11:14 | Outpatient (RCR) | payer OTHER | END 2018-07-30 | LOC: M OT 07-01 11:25 | DX: Z47.89 Encounter for other orthopedic aftercare (principal); S52.571D Other intraarticular fracture of lower end of right radius, subsequent encounter for closed fracture with routine healing | CPT/HCPCS: 97110 ==

== ENCOUNTER 2018-08-03 11:14 | Outpatient (RCR) | payer OTHER | END 2018-08-29 | LOC: M OT 11:14 | DX: Z47.89 Encounter for other orthopedic aftercare (principal); S52.571D Other intraarticular fracture of lower end of right radius, subsequent encounter for closed fracture with routine healing; X58.XXXD Exposure to other specified factors, subsequent encounter; Y92.9 Unspecified place or not applicable; Y93.9 Activity, unspecified; Y99.9 Unspecified external cause status | CPT/HCPCS: 97110 ==

== ENCOUNTER 2018-08-22 04:54 | Emergency (ER) | payer OTHER ==
[2018-08-22 05:36] LABS: BASO % 0.3 % (0.0-1.0); EOS # 0.3 10^3/uL (0.0-0.50); EOS % 5.1 % (0.0-3.0); HEMATOCRIT 38.2 % (36.0-47.0); HEMOGLOBIN 12.7 g/dl (12.0-15.5); IMMATURE GRANULOCYTE % 0.6 % (0-3.0); LYMPH % 31.6 % (24.0-44.0); MEAN CORPUSCULAR HEMOGLOBIN 31.5 pg (27.0-33.0); MEAN CORPUSCULAR HGB CONC 33.2 g/dl (32.0-36.5); MEAN CORPUSCULAR VOLUME 94.8 fl (80.0-96.0); MONO # 0.3 10^3/uL (0.0-0.8); MONO % 5.3 % (0.0-5.0); NEUTROPHILS # 3.6 10^3/uL (1.8-7.7); NEUTROPHILS % 57.1 % (36.0-66.0); PLATELET COUNT, AUTOMATED 210 10^3/uL (150-450); RED BLOOD COUNT 4.03 10^6/uL (4.00-5.40); RED CELL DISTRIBUTION WIDTH 12.6 % (11.5-14.5); WHITE BLOOD COUNT 6.3 10^3/uL (4.0-10.0)
[2018-08-22 05:47] LABS: INR 2.36; PROTHROMBIN TIME 26.3 SECONDS (12.1-14.4)
[2018-08-22 05:48] LABS: PARTIAL THROMBOPLASTIN TIME 32.6 SECONDS (25.4-37.6)
[2018-08-22 06:04] LABS: ALBUMIN 3.2 GM/DL (3.2-5.2); ALBUMIN/GLOBULIN RATIO 0.89 (1.00-1.93); ALKALINE PHOSPHATASE 81 U/L (45-117); ALT/SGPT 62 U/L (12-78); ANION GAP 7 MEQ/L (8-16); AST/SGOT 122 U/L (7-37); BILIRUBIN,DIRECT 0.2 MG/DL (0.0-0.2); BILIRUBIN,TOTAL 0.5 MG/DL (0.2-1.0); BLOOD UREA NITROGEN 19 MG/DL (7-18); CARBON DIOXIDE LEVEL 30 MEQ/L (21-32); CHLORIDE LEVEL 104 MEQ/L (98-107); CPK CREATINE PHOSPHOKINASE 83 U/L (26-192); CREATININE FOR GFR 0.64 MG/DL (0.55-1.30); GLOMERULAR FILTRATION RATE > 60.0 (>45); GLUCOSE, FASTING 98 MG/DL (70-100); LIPASE 111 U/L (73-393); MB/CK RELATIVE INDEX 1.45 (< OR =4); POTASSIUM SERUM 3.9 MEQ/L (3.5-5.1); SODIUM LEVEL 141 MEQ/L (136-145); TOTAL PROTEIN 6.8 GM/DL (6.4-8.2); TROPONIN I < 0.02 NG/ML (< 0.10)
[2018-08-22] MEDS ORDERED: GASTROGRAFIN SOLUTION 30ML (Q9963) As Ordered (06:53)
[2018-08-22] MEDS: ONDANSETRON 4MG/2ML VIAL (J2405) IV ×2 (07:03→11:49)
[2018-08-22] MEDS: NS 1,000 ML IV (07:04)
[2018-08-22] MEDS: MORPHINE 4 MG/ML 1ML VIAL/SYRINGE (J2270) IV ×2 (07:25→09:28)
[2018-08-22] MEDS ORDERED: ISOVUE-370 76% 100ML VIAL (Q9967) As Ordered (07:55)
== END 2018-08-22 12:04 | disposition home or self-care (01) ==
LOC: M ED 04:54
DX: R10.9 Unspecified abdominal pain (principal); R11.10 Vomiting, unspecified; Z86.718 Personal history of other venous thrombosis and embolism; Z90.49 Acquired absence of other specified parts of digestive tract; Z88.1 Allergy status to other antibiotic agents; Z88.5 Allergy status to narcotic agent; Z88.0 Allergy status to penicillin; Z88.8 Allergy status to other drugs, medicaments and biological substances; Z79.899 Other long term (current) drug therapy; Z79.01 Long term (current) use of anticoagulants
CPT/HCPCS: J2270

== ENCOUNTER 2018-08-30 11:12 | Outpatient (RCR) | payer OTHER | END 2018-09-29 | LOC: M OT 09-01 11:14 | DX: S52.571D Other intraarticular fracture of lower end of right radius, subsequent encounter for closed fracture with routine healing (principal) | CPT/HCPCS: 97110 ==

== ENCOUNTER 2018-10-05 10:32 | Outpatient (RCR) | payer OTHER | END 2018-10-29 | LOC: M OT 10:32 | DX: S52.571D Other intraarticular fracture of lower end of right radius, subsequent encounter for closed fracture with routine healing (principal); X58.XXXD Exposure to other specified factors, subsequent encounter; Y92.9 Unspecified place or not applicable; Y93.9 Activity, unspecified; Y99.9 Unspecified external cause status | CPT/HCPCS: 97110 ==

== ENCOUNTER 2018-11-24 10:37 | Outpatient (RCR) | payer OTHER ==
[~2018-11-24 10:37] MED LIST changes: +CALC600T7 PO; +FURO20TA2 PO; +GUAI100S27 PO; -GUAI100S7 PO; -IBUP200C10 PO; +IBUP200C25 PO; +IPRA0.00 NEB; -IPRASOL4 NEB; +MAGN500T5 PO; +MELA10CA PO; +NORCOTAB PO; +OMEGCAP9 PO; +VITA-176 PO; +VITA-193 PO; -ZOFR20TA PO; +ZOFR4TAB16 PO
== END 2018-11-29 ==
LOC: M OT 10:37
PROVIDERS: ATTEND Orthopaedic Surgery
DX: Z47.89 Encounter for other orthopedic aftercare (principal); Z98.890 Other specified postprocedural states; S52.571D Other intraarticular fracture of lower end of right radius, subsequent encounter for closed fracture with routine healing

== ENCOUNTER → 2018-11-25 | Outpatient (REF) | payer OTHER ==
[2018-11-25 17:55] LABS: CALCIUM LEVEL 8.6 MG/DL (8.8-10.2)
[2018-11-25 18:11] LABS: TOTAL 25(OH) VITAMIN D 57.6 NG/ML (30.0-100.0)
== END ==
LOC: M LABDRAW1 16:54
PROVIDERS: ATTEND Nurse Practitioner Family
DX: E83.51 Hypocalcemia (principal); E55.9 Vitamin D deficiency, unspecified

== ENCOUNTER 2018-12-11 13:44 | Emergency (ER) | payer MEDICARE, OTHER ==
[~2018-12-11] VITALS: Ht 154.9 cm; Wt 71.4 kg
[~2018-12-11 13:44] MED LIST changes: -LASI20TA PO; +LASI20TA3 PO
[2018-12-11] MEDS ORDERED: KETO2SH (13:54)
[2018-12-11] MEDS ORDERED: HYDR-643 (13:54)
[2018-12-11] MEDS ORDERED: REST0.05 (13:54)
[2018-12-11] MEDS ORDERED: PERCOCET 5MG/325MG TAB PO ONE (14:15)
[2018-12-11] MEDS ORDERED: diazePAM 10 MG TAB PO ONE (14:30)
[2018-12-11 14:46] VITALS: BP 121/73
[2018-12-11] MEDS ORDERED: PERC5TAB12 PO (15:30)
[2018-12-11] MEDS ORDERED: VALI5TAB PO (15:30)
== END 2018-12-11 15:37 | disposition home or self-care (01) ==
LOC: M ED 13:44
DX: M43.6 Torticollis (principal); K21.9 Gastro-esophageal reflux disease without esophagitis; I73.00 Raynaud's syndrome without gangrene; M35.00 Sjogren syndrome, unspecified; Z86.711 Personal history of pulmonary embolism; Z88.1 Allergy status to other antibiotic agents; Z88.5 Allergy status to narcotic agent; Z88.0 Allergy status to penicillin; Z88.8 Allergy status to other drugs, medicaments and biological substances; Z91.030 Bee allergy status; Z79.899 Other long term (current) drug therapy

== ENCOUNTER 2018-12-13 12:55 | Outpatient (RCR) | payer OTHER ==
[~2018-12-13 12:55] MED LIST changes: +HYDR-643; +KETO2SH; +REST0.05; +VALI5TAB PO
== END 2018-12-30 ==
LOC: M OT 12:55
PROVIDERS: ATTEND Orthopaedic Surgery
DX: Z47.89 Encounter for other orthopedic aftercare (principal); S52.571D Other intraarticular fracture of lower end of right radius, subsequent encounter for closed fracture with routine healing; Z98.890 Other specified postprocedural states

== ENCOUNTER → 2019-07-04 | Outpatient (CLI) | payer MEDICARE ==
[~2019-07-04] MED LIST changes: -/ESOM40CA; -/WARF4TA; +COUM1TAB14; -CVS20TAB PO; +GUAI100L6 PO; -GUAI100S27 PO; +HYDR-3715 PO; -KETO2SH; +KETO2SHA9; +NEXI1CAP3; -NORCOTAB PO; +OMEP20TA9 PO
[2019-07-04 20:39] LABS: RUBELLA IgG QUALITATIVE IMMUNE (IMMUNE)
== END ==
LOC: M WUC 15:43
PROVIDERS: ATTEND Physician Assistant
DX: Z02.1 Encounter for pre-employment examination (principal)

== ENCOUNTER 2019-12-09 12:02 | Emergency (ER) | payer MEDICARE ==
[~2019-12-09] VITALS: Ht 154.9 cm; Wt 71.9 kg
[~2019-12-09 12:02] MED LIST changes: +CYAN500T9 PO; -OMEP40CA2 PO; +OMEP40CA97 PO; -VITA-193 PO
[2019-12-09 13:15] LABS: BASO % 0.4 % (0.0-1.0); EOS # 0.4 10^3/uL (0.0-0.5); EOS % 5.2 % (0.0-3.0); HEMATOCRIT 44.6 % (36.0-47.0); LYMPH # 1.4 10^3/uL (1.5-5.0); LYMPH % 20.5 % (24.0-44.0); MEAN CORPUSCULAR HEMOGLOBIN 30.4 pg (27.0-33.0); MEAN CORPUSCULAR HGB CONC 31.4 g/dl (32.0-36.5); MEAN CORPUSCULAR VOLUME 96.7 fl (80.0-96.0); MONO # 0.5 10^3/uL (0.0-0.8); MONO % 7.2 % (0.0-5.0); NEUTROPHILS # 4.5 10^3/uL (1.5-8.5); NEUTROPHILS % 66.1 % (36.0-66.0); PLATELET COUNT, AUTOMATED 220 10^3/uL (150-450); RED BLOOD COUNT 4.61 10^6/uL (4.00-5.40); WHITE BLOOD COUNT 6.8 10^3/uL (4.0-10.0)
[2019-12-09 13:29] LABS: INR 1.01
[2019-12-09 13:30] LABS: PARTIAL THROMBOPLASTIN TIME 26.7 SECONDS (25.0-38.4)
[2019-12-09] MEDS ORDERED: NS 500 ML IV ONE (13:30)
[2019-12-09] MEDS ORDERED: MORPHINE 4 MG/ML 1ML VIAL/SYRINGE (J2270) IV ONE ×2 (13:30→16:45)
[2019-12-09] MEDS ORDERED: METOCLOPRAMIDE INJ 10MG/2ML VIAL (J2765) IV ONE (13:30)
[2019-12-09 13:47] LABS: ALBUMIN 3.8 GM/DL (3.2-5.2); BILIRUBIN,DIRECT 0.3 MG/DL (0.0-0.2); TOTAL PROTEIN 7.2 GM/DL (6.4-8.2)
[2019-12-09] MEDS ORDERED: ISOVUE-370 76% 100ML VIAL (Q9967) As Ordered ONE (14:38)
[2019-12-09] MEDS ORDERED: GI COCKTAIL 50ML BTL(HYOSCYAMINE/MAALOX/LIDOCAINE VISCOUS)(1:3:1) PO ONE (14:45)
--- NOTE | 2019-12-09 15:51 | REP ---
CT thoracic angiogram: With IV contrast. History: Upper abdomen pain. Rule out aortic aneurysm. Comparison studies: Comparison chest CT study September 05, 2016 Contrast dose: 100 mL of Isovue [address] technique: Helical scanning is acquired and overlapping 1.5 mm and contiguous 3 mm axial images are reformatted. In addition, maximum intensity projection and multiplanar re-formation images are generated in sagittal and coronal imaging projections. CT thoracic angiographic findings: The thoracic aorta is well opacified and there is no evidence of aneurysm or dissection. It is elongate indicating tortuosity. It is normal in caliber. It is unchanged from its appearance on the September 05, [address] study. The patient gives a history of hiatal hernia esophageal repair. The esophagus is fluid-filled and mildly dilated throughout its thoracic course. This is also a finding which is unchanged from the 2016 study. There is evidence of elevation or eventration of the diaphragms bilaterally. There are sutures adjacent to the GE junction and gastric fundus. No mediastinal mass or adenopathy is observed. The pulmonary arterial tree is also well opacified and there is no CT evidence of pulmonary embolus. The lung mcleod show no evidence of infiltrate, significant atelectasis or mass. There is a benign hemangioma in the a wedged lower thoracic vertebra. A small benign hemangioma is seen at another level in the thoracic spine as well. No bony destructive lesion is appreciated. Impression: Thoracic aorta is tortuous but not aneurysmal. No dissection. No CT evidence of pulmonary embolus. Fluid filled mildly dilated esophagus, status post GE junction surgery. Complex eventration left hemidiaphragm. Elevation/eventration right hemidiaphragm. Findings unchanged. Electronically Signed by Arjun Plaza MD 12/10/2019 05:20 A
--- NOTE | 2019-12-09 15:56 | REP ---
CT angiography of the abdomen with IV contrast: History: Upper abdominal pain, rule out abdominal aortic aneurysm. Comparison CT study August 22, 2018. CT contrast dose: 100 mL of intravenous Isovue 370. CT angiographic findings: Preliminary digital tree scout radiograph demonstrates a Melinda filter, clips in the right upper quadrant, monitoring electrodes, and a normal bowel gas pattern. The distal thoracic aorta is tortuous and normal in caliber. The suprarenal and infrarenal abdominal aorta are normal in caliber. There is atherosclerotic calcification particularly at the bifurcation and at the aortic branches. No aneurysm or dissection is seen. Singular calcific renal artery origins are noted bilaterally. Melinda vena cava filter is seen in place. The common and external iliac arteries are widely patent bilaterally. Internal iliac arteries are patent. No hepatic or splenic lesion is seen. No abnormality is noted in the pancreas. The CBD is 10 mm in greatest AP dimension post cholecystectomy unchanged from the comparison study August 22, 2018. There is a epigastric ventral hernia broad-based transmitting a portion of the left lobe of the liver as well as unobstructed small intestinal bowel loops. This is also unchanged. No other abdominal wall defect is seen. There is mild left colonic diverticulosis. Impression: No evidence of abdominal aortic aneurysm or dissection. A Melinda vena cava filter is seen in place. Post cholecystectomy. Atherosclerotic vascular calcification. Epigastric ventral hernia. Electronically Signed by Arjun Plaza MD 12/10/2019 05:21 A
[2019-12-09] MEDS ORDERED: SUCRALFATE 1 GM TAB PO ONE (16:45)
[2019-12-09 18:56] VITALS: BP 145/82
--- NOTE | 2019-12-10 22:17 | ECGEPIP ---
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
--- NOTE | 2019-12-12 06:47 | ED PDOC ---
Post-Departure Follow-Up carley corbett faxed formal report of cta chest for fu Lake Hendricks MD Dec 12, 2019 06:47
== END 2019-12-09 19:00 | disposition home or self-care (01) ==
LOC: M ED 12:02
DX: R00.1 Bradycardia, unspecified (principal); K29.70 Gastritis, unspecified, without bleeding; F32.9 Major depressive disorder, single episode, unspecified; K21.9 Gastro-esophageal reflux disease without esophagitis; M35.00 Sjogren syndrome, unspecified; Z86.711 Personal history of pulmonary embolism; K27.9 Peptic ulcer, site unspecified, unspecified as acute or chronic, without hemorrhage or perforation; I71.2 Thoracic aortic aneurysm, without rupture; Z95.828 Presence of other vascular implants and grafts; I25.84 Coronary atherosclerosis due to calcified coronary lesion; K44.9 Diaphragmatic hernia without obstruction or gangrene; Z79.899 Other long term (current) drug therapy; Z88.0 Allergy status to penicillin; Z88.1 Allergy status to other antibiotic agents; Z88.5 Allergy status to narcotic agent; Z88.8 Allergy status to other drugs, medicaments and biological substances; Z91.030 Bee allergy status
CPT/HCPCS: 71275; 74174; 80047; 80076; 81001; 82150; 83605; 83690; 85025; 85610; 85730; 87086; 93005; 93041; 96361; 96374; 96375; 96376; 99285; J2270; J2765; Q9967

== ENCOUNTER → 2020-04-05 | Outpatient (CLI) | payer MEDICARE ==
[2020-04-05 17:15] LABS: IONIZED CALCIUM 4.8 MG/DL (4.5-5.3)
[2020-04-05 17:46] LABS: ALBUMIN 3.5 GM/DL (3.2-5.2); CALCIUM LEVEL 9.1 MG/DL (8.8-10.2)
== END ==
LOC: M PLALAB 14:56
PROVIDERS: ATTEND Internal Medicine Endocrinology, Diabetes & Metabolism
DX: M81.0 Age-related osteoporosis without current pathological fracture (principal); E55.9 Vitamin D deficiency, unspecified

== ENCOUNTER → 2020-04-09 | Outpatient (CLI) | payer MEDICARE | LOC: M LABSMTC 13:34 | PROVIDERS: ATTEND Family Medicine | DX: Z11.59 Encounter for screening for other viral diseases (principal) | CPT/HCPCS: C9803; U0002 ==

== ENCOUNTER → 2020-04-17 | Outpatient (CLI) | payer MEDICARE ==
[2020-04-17 18:17] LABS: BLOOD UREA NITROGEN 11 MG/DL (7-18); CALCIUM LEVEL 8.4 MG/DL (8.8-10.2); CARBON DIOXIDE LEVEL 28 MEQ/L (21-32); CHLORIDE LEVEL 109 MEQ/L (98-107); CREATININE FOR GFR 0.57 MG/DL (0.55-1.30); GLOMERULAR FILTRATION RATE > 60.0 (>39); GLUCOSE, FASTING 81 MG/DL (70-100); POTASSIUM SERUM 3.5 MEQ/L (3.5-5.1); SODIUM LEVEL 143 MEQ/L (136-145)
== END ==
LOC: M PLALAB 15:38
PROVIDERS: ATTEND Internal Medicine Endocrinology, Diabetes & Metabolism
DX: M81.0 Age-related osteoporosis without current pathological fracture (principal)

== ENCOUNTER → 2020-04-27 | Outpatient (CLI) | payer MEDICARE ==
[~2020-04-27] MED LIST changes: +KETO2SHA8; -KETO2SHA9
== END ==
LOC: M PLALAB 15:55
PROVIDERS: ATTEND Internal Medicine Endocrinology, Diabetes & Metabolism
DX: M81.0 Age-related osteoporosis without current pathological fracture (principal)

== ENCOUNTER → 2020-06-21 | Outpatient (REF) | payer MEDICARE, OTHER ==
[~2020-06-21] MED LIST changes: +CALC-212 PO; -CALC600T7 PO; +CYAN500T10 PO; -CYAN500T9 PO; -HYDR-2808 PO; +HYDR-4429 PO
== END ==
LOC: M LAB REF 09:35
PROVIDERS: ATTEND Dermatology
DX: Z85.858 Personal history of malignant neoplasm of other endocrine glands (principal)

== ENCOUNTER → 2020-07-19 | Outpatient (CLI) | payer MEDICARE ==
[2020-07-19 19:00] LABS: BASO % 0.4 % (0.0-1.0); EOS # 0.2 10^3/uL (0.0-0.5); EOS % 4.8 % (0.0-3.0); HEMATOCRIT 40.1 % (36.0-47.0); HEMOGLOBIN 12.8 g/dl (12.0-15.5); LYMPH # 1.8 10^3/uL (1.5-5.0); LYMPH % 39.1 % (24.0-44.0); MEAN CORPUSCULAR HEMOGLOBIN 30.9 pg (27.0-33.0); MEAN CORPUSCULAR HGB CONC 31.9 g/dl (32.0-36.5); MEAN CORPUSCULAR VOLUME 96.9 fl (80.0-96.0); MONO # 0.3 10^3/uL (0.0-0.8); MONO % 5.7 % (0.0-5.0); NEUTROPHILS # 2.3 10^3/uL (1.5-8.5); NEUTROPHILS % 49.8 % (36.0-66.0); PLATELET COUNT, AUTOMATED 229 10^3/uL (150-450); RED BLOOD COUNT 4.14 10^6/uL (4.00-5.40); WHITE BLOOD COUNT 4.6 10^3/uL (4.0-10.0)
[2020-07-19 19:39] LABS: ALBUMIN 3.2 GM/DL (3.2-5.2); ALT/SGPT 16 U/L (12-78); BILIRUBIN,TOTAL 0.4 MG/DL (0.2-1.0); BLOOD UREA NITROGEN 12 MG/DL (7-18); CALCIUM LEVEL 8.5 MG/DL (8.8-10.2); CARBON DIOXIDE LEVEL 29 MEQ/L (21-32); CHLORIDE LEVEL 110 MEQ/L (98-107); CREATININE FOR GFR 0.84 MG/DL (0.55-1.30); GLOMERULAR FILTRATION RATE > 60.0 (>39); GLUCOSE, FASTING 140 MG/DL (70-100); POTASSIUM SERUM 3.9 MEQ/L (3.5-5.1); SODIUM LEVEL 140 MEQ/L (136-145); TOTAL PROTEIN 6.2 GM/DL (6.4-8.2)
== END ==
LOC: M PLALAB 15:33
PROVIDERS: ATTEND Physician Assistant
DX: R42 Dizziness and giddiness (principal); R11.0 Nausea; Z79.899 Other long term (current) drug therapy

== ENCOUNTER → 2020-08-09 | Outpatient (CLI) | payer MEDICARE ==
[2020-08-09 14:21] LABS: HEMOGLOBIN A1c 5.7 %
== END ==
LOC: M PLALAB 10:17
PROVIDERS: ATTEND Physician Assistant
DX: R73.9 Hyperglycemia, unspecified (principal)

== ENCOUNTER → 2020-12-20 | Outpatient (CLI) | payer MEDICARE ==
[~2020-12-20] MED LIST changes: -CYAN500T10 PO; +VITA500T37 PO
[2020-12-20 16:01] LABS: BLOOD UREA NITROGEN 14 MG/DL (7-18); CREATININE FOR GFR 0.79 MG/DL (0.55-1.30); GLOMERULAR FILTRATION RATE > 60.0 (>39)
== END ==
LOC: M PLALAB 13:29
PROVIDERS: ATTEND Physician Assistant Surgical
DX: M25.551 Pain in right hip (principal)

== ENCOUNTER → 2021-06-28 | Outpatient (CLI) | payer MEDICARE ==
[~2021-06-28] MED LIST changes: +OMEP20TA2 PO; -OMEP20TA9 PO; +OMEP40CA4 PO; -OMEP40CA97 PO
--- NOTE | 2021-07-02 15:20 | DEXAMM ---
INDICATION: M[age] AGE REL OSTEOPOROSIS W/O FX. COMPARISON: 12/13/2012 as well as other prior exams. TECHNIQUE: Bone density was measured using dual-energy x-ray absorptiometry (DEXA). FINDINGS: AP SPINE L1-L4 BMD 1.043 g/cm2 Young Adult T-Score -1.1 Age Matched Z-Score 0.6. LT FEMUR, TOTAL BMD 0.663 g/cm2 Young Adult T-Score -2.7 Age Matched Z-Score -1.2. LT NECK BMD 0.657 g/cm2 Young Adult T-Score -2.7 Age Matched Z-Score -1.0. RT FEMUR, TOTAL BMD 0.696 g/cm2 Young Adult T-Score -2.5 Age Matched Z-Score -0.9. RT NECK BMD 0.688 g/cm2 Young Adult T-Score -2.5 Age Matched Z-Score -0.7. IMPRESSION: There is low bone density of the spine. There is osteoporosis of the left hip. There is low bone density of the right hip. The density of the spine has increased 16.3% since the initial exam on 11/16/2008. The density of the spine increased 8.0% since most recent exam on 12/13/2012. The density of the left hip has decreased 1.5% since initial exam on 11/16/2008. The density of the left hip has decreased 4.9% since most recent exam on 12/13/2012. The density of the right hip has decreased 0.7% since the initial exam on 11/16/2008. The density of the right hip has decreased 1.3% since the most recent exam on 12/13/2012. FOLLOW-UP: Recommendation for the next bone density exam: 2 years. <Electronically signed by Rafael Wetzel > 07/02/21 1502
== END ==
LOC: M WHC 14:23
PROVIDERS: ATTEND Internal Medicine Endocrinology, Diabetes & Metabolism
DX: M81.0 Age-related osteoporosis without current pathological fracture (principal); M85.88 Other specified disorders of bone density and structure, other site; M85.851 Other specified disorders of bone density and structure, right thigh

== ENCOUNTER → 2021-10-16 | Outpatient (CLI) | payer MEDICARE ==
--- NOTE | 2021-10-16 16:56 | REPMRS ---
Patient History The patient states she had a clinical breast exam 10-10-21. Patient is postmenopausal and has history of other cancer at age 52. Family history of breast cancer at age 40 in paternal aunt. Reductions of both breasts, 1996. Took hormonal contraceptives for 2 months. Patient states no breast complaints today. Patient has signed MRS History Sheet. Digital Woman Screen Mammo: October 16, 2021 - Exam #: [id number] Bilateral CC and MLO view(s) were taken. Technologist: Brittany Walton, Agricultural Equipment Operator Prior study comparison: March 02, 2015, bilateral digital mammo screening bilat, performed at [facility]. February 16, 2014, bilateral bilat screen digital mammo, performed at [facility] ([facility]). FINDINGS: There are scattered fibroglandular densities. Screening. Digital screening (2D) mammography was performed bilaterally in the CC and MLO projections. Additionally, breast tomosynthesis (3D mammography) was performed bilaterally in the CC and MLO projections. Todays exam was compared to the prior exam/exams. By history, the patient has no complaints of a palpable breast abnormality or other significant breast complaints. The Volpara volumetric breast density category is B, there are scattered areas of fibroglandular densities. The breasts are unchanged in size and shape. There are no mariajose-soft tissue densities or spiculated masses. There is no internal architectural distortion. There are no suspicious mariajose-calcific clusters. Skin thickening or nipple retraction is not present. IMPRESSION: BI-RADS Category 2- Benign Findings. There is no evidence of malignant alteration of the breasts. Followup examination recommended in one year. This mammogram was read with the assistance [facility],an FDA approved computer aided detection system for mammography. The lifetime Tyrer-Cuzick score is 3.0% Negative x-ray reports should not delay surgical consultation if a dominant or clinically suspicious mass is present. Not all breast cancers can be identified by mammography. Therefore, we recommend that you continue to perform regular breast self-examination and physical examination and then promptly contact your physician of any concerns or changes. Adenosis and dense breasts may obscure an underlying neoplasm. No significant changes when compared with prior studies. Assessment: BI-RADS/ACR category 2 mammogram. Benign Findings. Recommendation Routine screening mammogram of both breasts in 1 year. Electronically Signed By: Jeremiah Vela MD 10/16/21 0681
== END ==
LOC: M WHC 14:57
PROVIDERS: ATTEND Family Medicine
DX: Z12.31 Encounter for screening mammogram for malignant neoplasm of breast (principal); Z78.0 Asymptomatic menopausal state; Z85.9 Personal history of malignant neoplasm, unspecified; Z80.3 Family history of malignant neoplasm of breast

== ENCOUNTER 2021-11-10 15:55 | Emergency (ER) | payer MEDICARE ==
[~2021-11-10] VITALS: Ht 152.4 cm; Wt 70.5 kg
[~2021-11-10 15:55] MED LIST changes: -LEVO500T3 PO; +LEVO500T4 PO
[2021-11-10 17:07] LABS: BASO % 0.3 % (0.0-1.0); EOS # 0.3 10^3/uL (0.0-0.5); EOS % 2.9 % (0.0-3.0); HEMATOCRIT 41.5 % (36.0-47.0); HEMOGLOBIN 13.3 g/dl (12.0-15.5); LYMPH # 1.8 10^3/uL (1.5-5.0); LYMPH % 20.1 % (24.0-44.0); MEAN CORPUSCULAR HEMOGLOBIN 31.7 pg (27.0-33.0); MEAN CORPUSCULAR VOLUME 98.8 fl (80.0-96.0); MONO # 0.5 10^3/uL (0.0-0.8); MONO % 5.3 % (2.0-8.0); NEUTROPHILS # 6.2 10^3/uL (1.5-8.5); NEUTROPHILS % 71.1 % (36.0-66.0); PLATELET COUNT, AUTOMATED 256 10^3/uL (150-450); WHITE BLOOD COUNT 8.8 10^3/uL (4.0-10.0)
[2021-11-10 17:27] LABS: ERYTHROCYTE SEDIMENTATION RATE 29 mm/hr (0-30)
[2021-11-10 17:55] LABS: ALBUMIN 3.3 GM/DL (3.2-5.2); ALT/SGPT 23 U/L (12-78); BILIRUBIN,DIRECT 0.1 MG/DL (0.0-0.2); BILIRUBIN,TOTAL 0.3 MG/DL (0.2-1.0); BLOOD UREA NITROGEN 11 MG/DL (7-18); C REACTIVE PROTEIN QUANTITATIV 0.57 MG/DL (0.00-0.30); CALCIUM LEVEL 8.9 MG/DL (8.8-10.2); CARBON DIOXIDE LEVEL 32 MEQ/L (21-32); CHLORIDE LEVEL 105 MEQ/L (98-107); CREATININE FOR GFR 0.57 MG/DL (0.55-1.30); GLOMERULAR FILTRATION RATE > 60.0 (>39); GLUCOSE, FASTING 98 MG/DL (70-100); NT-PRO BNP 353 PG/ML (<125); POTASSIUM SERUM 4.8 MEQ/L (3.5-5.1); SODIUM LEVEL 139 MEQ/L (136-145); URIC ACID 3.4 MG/DL (2.6-6.0)
[2021-11-10] MEDS ORDERED: ISOVUE-370 76% 100ML VIAL As Ordered ONE (18:20)
[2021-11-10] MEDS ORDERED: MORPHINE 4 MG/ML 1ML VIAL/SYRINGE (J2270) IV ONE (21:15)
[2021-11-10] MEDS ORDERED: DOXYCYCLINE HYCLATE 100MG TABLET PO ONE (21:20)
[2021-11-10] MEDS ORDERED: DOXY-443 PO (21:25)
[2021-11-10] MEDS ORDERED: PERC5TAB12 PO (21:30)
[2021-11-10 22:56] VITALS: BP 142/76
== END 2021-11-10 22:59 | disposition home or self-care (01) ==
LOC: M ED 15:55
DX: L03.115 Cellulitis of right lower limb (principal); M79.671 Pain in right foot; J18.9 Pneumonia, unspecified organism; R06.02 Shortness of breath; K21.9 Gastro-esophageal reflux disease without esophagitis; F41.9 Anxiety disorder, unspecified; F32.9 Major depressive disorder, single episode, unspecified; I73.00 Raynaud's syndrome without gangrene; M35.00 Sjogren syndrome, unspecified; Z86.711 Personal history of pulmonary embolism; Z95.828 Presence of other vascular implants and grafts; M19.071 Primary osteoarthritis, right ankle and foot; M81.0 Age-related osteoporosis without current pathological fracture; M77.31 Calcaneal spur, right foot; Z79.899 Other long term (current) drug therapy; Z88.0 Allergy status to penicillin; Z91.030 Bee allergy status; Z88.1 Allergy status to other antibiotic agents; Z88.5 Allergy status to narcotic agent; Z88.8 Allergy status to other drugs, medicaments and biological substances
CPT/HCPCS: 71275; 73630; 80048; 80076; 83880; 84443; 84484; 84550; 85025; 85652; 86140; 87798; 93005; 93041; 93971; 94760; 96374; 99285; J2270; Q9967

== ENCOUNTER → 2021-11-22 | Outpatient (CLI) | payer MEDICARE ==
[~2021-11-22] MED LIST changes: +DOXY-443 PO
== END ==
LOC: M LABSMTC 10:27
PROVIDERS: ATTEND Pediatrics
DX: Z20.822 Contact with and (suspected) exposure to COVID-19 (principal)
CPT/HCPCS: C9803; U0003

== ENCOUNTER 2021-11-27 09:49 | Outpatient (CLI) | payer MEDICARE ==
[~2021-11-27] VITALS: Ht 152.4 cm; Wt 69.5 kg
[~2021-11-27 09:49] MED LIST changes: +ALBUTEROL 90 MCG/ACT 8GM HFA INHALER INH PRN; +ALBUTEROL SULFATE 2.5 MG/0.5 ML INH NEB SOLN INH PRN; +EPINEPHrine INJ 1 MG/ML 1ML AMP IM PRN; +LEVO500T3 PO; -LEVO500T4 PO; +NS 1,000 ML IV SCH; +diphenhydrAMINE 50MG/ML VIAL (J1200) IV PRN; +methylPREDNISolone 125MG 2ML VIAL IV PRN
[2021-11-27 10:23] VITALS: BP 135/77
[2021-11-27] MEDS ORDERED: BAMLANIVIMAB 700 MG, ETESEVIMAB 1,400 MG in NS 250 ML IV ONE (10:30)
[2021-11-27] MEDS ORDERED: ACETAMINOPHEN TAB 650MG DOSE (2X325MG) PO ONE (10:30)
[2021-11-27 10:53] VITALS: BP 113/63
[2021-11-27 11:23] VITALS: BP 103/60
[2021-11-27 12:23] VITALS: BP 106/64
== END 2021-11-27 12:23 | disposition home or self-care (01) ==
LOC: M OPCLI4PR 09:49
PROVIDERS: ATTEND Family Medicine
DX: U07.1 COVID-19 (principal); Z88.0 Allergy status to penicillin; Z88.1 Allergy status to other antibiotic agents; Z88.8 Allergy status to other drugs, medicaments and biological substances

== ENCOUNTER → 2022-03-11 | Outpatient (CLI) | payer MEDICARE ==
[~2022-03-11] MED LIST changes: -ALBUTEROL 90 MCG/ACT 8GM HFA INHALER INH PRN; -ALBUTEROL SULFATE 2.5 MG/0.5 ML INH NEB SOLN INH PRN; -EPINEPHrine INJ 1 MG/ML 1ML AMP IM PRN; -LEVO500T3 PO; +LEVO500T4 PO; -NS 1,000 ML IV SCH; -diphenhydrAMINE 50MG/ML VIAL (J1200) IV PRN; -methylPREDNISolone 125MG 2ML VIAL IV PRN
[2022-03-11 18:22] LABS: BLOOD UREA NITROGEN 11 MG/DL (7-18); CALCIUM LEVEL 9.1 MG/DL (8.8-10.2); CARBON DIOXIDE LEVEL 32 MEQ/L (21-32); CHLORIDE LEVEL 105 MEQ/L (98-107); CREATININE FOR GFR 0.55 MG/DL (0.55-1.30); GLOMERULAR FILTRATION RATE > 60.0 (>39); GLUCOSE, FASTING 91 MG/DL (70-100); POTASSIUM SERUM 4.5 MEQ/L (3.5-5.1); SODIUM LEVEL 141 MEQ/L (136-145)
[2022-03-12 11:01] LABS: TOTAL 25(OH) VITAMIN D 55.8 NG/ML (30.0-100.0)
== END ==
LOC: M PLALAB 14:40
PROVIDERS: ATTEND Internal Medicine Endocrinology, Diabetes & Metabolism
DX: M81.0 Age-related osteoporosis without current pathological fracture (principal)

== ENCOUNTER → 2022-04-07 | Outpatient (CLI) | payer MEDICARE ==
[2022-04-07 17:12] LABS: PLATELET COUNT, AUTOMATED 232 10^3/uL (150-450)
[2022-04-07 17:33] LABS: PROTHROMBIN TIME 13.6 SECONDS (12.7-14.5)
== END ==
LOC: M PLALAB 15:07
PROVIDERS: ATTEND Physician Assistant Surgical
DX: M53.3 Sacrococcygeal disorders, not elsewhere classified (principal)

== ENCOUNTER → 2022-08-18 | Outpatient (CLI) | payer MEDICARE ==
[~2022-08-18] MED LIST changes: +ALBU2.5V10 INH; -ALBU83IN INH; +LEVO1TAB39 PO; -LEVO500T4 PO
== END ==
LOC: M SLEEP HO 10:13
PROVIDERS: ATTEND Internal Medicine
DX: G47.33 Obstructive sleep apnea (adult) (pediatric) (principal); R53.83 Other fatigue

== ENCOUNTER 2023-01-01 10:52 | Inpatient (IN) | payer MEDICARE ==
[~2023-01-01] VITALS: Ht 152.4 cm; Wt 68.2 kg
[2023-01-01] MEDS ORDERED: METOCLOPRAMIDE INJ 10MG/2ML VIAL IV ONE (11:40)
[2023-01-01] MEDS ORDERED: GI COCKTAIL 50ML BTL(HYOSCYAMINE/MAALOX/LIDOCAINE VISCOUS)(1:3:1) PO ONE (11:40)
[2023-01-01] MEDS ORDERED: NS 1,000 ML IV ONE ×2 (11:40→16:35)
[2023-01-01 12:37] LABS: BASO % 0.2 % (0.0-1.0); HEMATOCRIT 41.1 % (36.0-47.0); HEMOGLOBIN 13.2 g/dl (12.0-15.5); LYMPH # 1.3 10^3/uL (1.5-5.0); LYMPH % 10.8 % (24.0-44.0); MEAN CORPUSCULAR HGB CONC 32.1 g/dl (32.0-36.5); MEAN CORPUSCULAR VOLUME 96.5 fl (80.0-96.0); MONO # 0.6 10^3/uL (0.0-0.8); MONO % 5.2 % (2.0-8.0); NEUTROPHILS # 9.9 10^3/uL (1.5-8.5); NEUTROPHILS % 83.4 % (36.0-66.0); PLATELET COUNT, AUTOMATED 204 10^3/uL (150-450); RED BLOOD COUNT 4.26 10^6/uL (4.00-5.40); WHITE BLOOD COUNT 11.8 10^3/uL (4.0-10.0)
[2023-01-01 13:05] LABS: LIPASE 19 U/L (12-53)
[2023-01-01 13:06] LABS: RSV AMPLIFICATION NEGATIVE (NEGATIVE)
[2023-01-01 13:08] LABS: ALBUMIN 3.2 G/DL (3.2-5.2); ALKALINE PHOSPHATASE 145 U/L (46-116); ALT/SGPT 64 U/L (7.0-40); AST/SGOT 63 U/L (<34); BILIRUBIN,DIRECT 0.3 MG/DL (<0.4); BILIRUBIN,TOTAL 0.9 MG/DL (0.3-1.2); BLOOD UREA NITROGEN 11 MG/DL (9-23); CALCIUM LEVEL 8.2 MG/DL (8.3-10.6); CARBON DIOXIDE LEVEL 30 MMOL/L (20-31); CHLORIDE LEVEL 100 MMOL/L (98-107); CPK CREATINE PHOSPHOKINASE 50 U/L (34-145); CREATININE FOR GFR 0.72 MG/DL (0.55-1.30); GLOMERULAR FILTRATION RATE > 60.0 (>39); GLUCOSE, FASTING 102 MG/DL (74-106); POTASSIUM SERUM 3.8 MMOL/L (3.5-5.1); SODIUM LEVEL 138 MMOL/L (136-145); TOTAL PROTEIN 6.5 G/DL (5.7-8.2)
[2023-01-01 13:29] LABS: CK-MB VALUE MASS < 1.0 NG/ML (<3.6)
[2023-01-01] MEDS ORDERED: ISOVUE-370 76% 100ML VIAL As Ordered ONE (13:34)
[2023-01-01] MEDS ORDERED: PANTOPRAZOLE 40MG VIAL IV ONE (15:40)
[2023-01-01] MEDS ORDERED: NS 1,000 ML IV SCH ×2 (16:35→19:00)
[2023-01-01 17:36] VITALS: BP 136/67
[2023-01-01] MEDS ORDERED: METOCLOPRAMIDE INJ 10MG/2ML VIAL IV SCH (18:00)
[2023-01-01] MEDS ORDERED: ONDANSETRON 4MG 2ML VIAL IV SCH (18:00)
[2023-01-01] MEDS: cefTRIAXone SOD 2 GM in D5W MINI-BAG PLUS 50 ML IV SCH (18:16)
[2023-01-01] MEDS ORDERED: GLUCOSE 4GM CHEW TABLET PO PRN (18:30)
[2023-01-01] MEDS ORDERED: DEXTROSE 50% 50ML SYRINGE IV PRN (18:30)
[2023-01-01] MEDS ORDERED: GLUCAGON INJ 1MG VIAL SC PRN (18:30)
[2023-01-01] MEDS: SUCRALFATE SUSP 1GM/10ML UD PO SCH ×2 (18:31→23:56)
[2023-01-01 19:52] VITALS: BP 123/61
[2023-01-01] MEDS ORDERED: DOXYCYCLINE HYCLATE 100 MG in D5W MINI-BAG PLUS 100 ML IV SCH (20:00)
[2023-01-01] MEDS: metroNIDAZOLE 500 MG in IV 1 EA IV SCH (21:34)
[2023-01-01] MEDS: LACTOBACILLUS ACIDOPHILUS CAP (BACID) PO SCH (21:35)
[2023-01-01] MEDS: PANTOPRAZOLE 40MG VIAL IV SCH (21:35)
[2023-01-01] MEDS ORDERED: PROMETHAZINE 25MG/ML 1ML VIAL IV PRN (23:50)
[2023-01-01] MEDS: ONDANSETRON 4MG 2ML VIAL IV PRN (23:56)
[2023-01-02] MEDS ORDERED: D5W/0.45% SODIUM CHLORIDE 1,000 ML IV SCH (02:00)
[2023-01-02 05:12] VITALS: BP 122/69
[2023-01-02] MEDS: metroNIDAZOLE 500 MG in IV 1 EA IV SCH ×3 (05:12→21:47)
[2023-01-02] MEDS: SUCRALFATE SUSP 1GM/10ML UD PO SCH ×3 (05:12→17:35)
[2023-01-02 07:58] LABS: BASO % 0.1 % (0.0-1.0); HEMATOCRIT 39.9 % (36.0-47.0); HEMOGLOBIN 12.6 g/dl (12.0-15.5); LYMPH % 7.4 % (24.0-44.0); MEAN CORPUSCULAR HGB CONC 31.6 g/dl (32.0-36.5); MEAN CORPUSCULAR VOLUME 98.3 fl (80.0-96.0); MONO # 0.7 10^3/uL (0.0-0.8); MONO % 4.9 % (2.0-8.0); NEUTROPHILS # 12.2 10^3/uL (1.5-8.5); NEUTROPHILS % 86.9 % (36.0-66.0); PLATELET COUNT, AUTOMATED 190 10^3/uL (150-450); RED BLOOD COUNT 4.06 10^6/uL (4.00-5.40)
[2023-01-02 08:22] LABS: BLOOD UREA NITROGEN 9 MG/DL (9-23); CALCIUM LEVEL 7.6 MG/DL (8.3-10.6); CARBON DIOXIDE LEVEL 24 MMOL/L (20-31); CHLORIDE LEVEL 104 MMOL/L (98-107); CREATININE FOR GFR 0.61 MG/DL (0.55-1.30); GLOMERULAR FILTRATION RATE > 60.0 (>39); GLUCOSE, FASTING 110 MG/DL (74-106); POTASSIUM SERUM 3.4 MMOL/L (3.5-5.1); SODIUM LEVEL 139 MMOL/L (136-145)
[2023-01-02 08:42] LABS: HEPATITIS B SURFACE ANTIGEN NEGATIVE (NEGATIVE)
[2023-01-02] MEDS: PANTOPRAZOLE 40MG VIAL IV SCH ×2 (08:43→21:47)
[2023-01-02] MEDS: LACTOBACILLUS ACIDOPHILUS CAP (BACID) PO SCH ×2 (08:44→21:47)
[2023-01-02 09:03] LABS: HEPATITIS B CORE ANTIBODY IGM NEGATIVE (NEGATIVE); HEPATITIS C VIRUS ABY INDEX 0.1 INDEX (<0.8)
[2023-01-02] MEDS ORDERED: E-Z-PAQUE 96% w/w SUSP 176GM BTL As Ordered ONE (09:30)
[2023-01-02] MEDS ORDERED: E-Z-HD 98% w/w 340GM SUSP BTL As Ordered ONE (09:31)
[2023-01-02] MEDS ORDERED: E-Z-GAS II EFFERVESCENT PACKET (SODIUM BICARB./CITRIC ACID/SIMETHICONE) As Ordered ONE (09:31)
[2023-01-02] MEDS: KCL 40MEQ IN D5/0.45NS 1000ML 1,000 ML IV SCH (11:42)
[2023-01-02 15:00] VITALS: BP 108/69
[2023-01-02] MEDS ORDERED: METR-265 PO (15:00)
[2023-01-02] MEDS ORDERED: SUCR1ORA PO (15:00)
[2023-01-02] MEDS ORDERED: CEFD300C41 PO (15:00)
[2023-01-02] MEDS: cefTRIAXone SOD 2 GM in D5W MINI-BAG PLUS 50 ML IV SCH (17:35)
[2023-01-02] MEDS ORDERED: RAMELTEON 8 MG TAB (ROZEREM) PO PRN (21:40)
[2023-01-02] MEDS: ONDANSETRON 4MG 2ML VIAL IV PRN (21:47)
[2023-01-02 22:00] VITALS: BP 103/63
[2023-01-03] MEDS: SUCRALFATE SUSP 1GM/10ML UD PO SCH ×2 (00:13→06:18)
[2023-01-03] MEDS: KCL 40MEQ IN D5/0.45NS 1000ML 1,000 ML IV SCH ×2 (00:14→08:10)
[2023-01-03] MEDS: metroNIDAZOLE 500 MG in IV 1 EA IV SCH (03:47)
[2023-01-03 05:43] LABS: BASO % 0.3 % (0.0-1.0); EOS # 0.1 10^3/uL (0.0-0.5); EOS % 1.5 % (0.0-3.0); HEMOGLOBIN 11.1 g/dl (12.0-15.5); LYMPH % 15.1 % (24.0-44.0); MEAN CORPUSCULAR HEMOGLOBIN 31.2 pg (27.0-33.0); MEAN CORPUSCULAR HGB CONC 32.6 g/dl (32.0-36.5); MEAN CORPUSCULAR VOLUME 95.5 fl (80.0-96.0); MONO # 0.5 10^3/uL (0.0-0.8); MONO % 6.7 % (2.0-8.0); NEUTROPHILS # 5.2 10^3/uL (1.5-8.5); NEUTROPHILS % 76.1 % (36.0-66.0); PLATELET COUNT, AUTOMATED 166 10^3/uL (150-450); RED BLOOD COUNT 3.56 10^6/uL (4.00-5.40); WHITE BLOOD COUNT 6.8 10^3/uL (4.0-10.0)
[2023-01-03 06:00] VITALS: BP 109/64
[2023-01-03 06:10] LABS: BLOOD UREA NITROGEN 6 MG/DL (9-23); CALCIUM LEVEL 7.4 MG/DL (8.3-10.6); CARBON DIOXIDE LEVEL 29 MMOL/L (20-31); CHLORIDE LEVEL 106 MMOL/L (98-107); CREATININE FOR GFR 0.51 MG/DL (0.55-1.30); GLOMERULAR FILTRATION RATE > 60.0 (>39); GLUCOSE, FASTING 126 MG/DL (74-106); POTASSIUM SERUM 3.8 MMOL/L (3.5-5.1); SODIUM LEVEL 140 MMOL/L (136-145)
[2023-01-03] MEDS: ONDANSETRON 4MG 2ML VIAL IV PRN (06:18)
[2023-01-03 08:16] LABS: LIPASE 23 U/L (12-53)
[2023-01-03 08:17] LABS: AMYLASE 27 U/L (30-118)
[2023-01-03 08:46] LABS: ALBUMIN 2.4 G/DL (3.2-5.2); ALKALINE PHOSPHATASE 100 U/L (46-116); ALT/SGPT 27 U/L (7.0-40); AST/SGOT 25 U/L (<34); BILIRUBIN,DIRECT 0.2 MG/DL (<0.4); BILIRUBIN,TOTAL 0.6 MG/DL (0.3-1.2); TOTAL PROTEIN 5.2 G/DL (5.7-8.2)
[2023-01-03] MEDS: PANTOPRAZOLE 40MG VIAL IV SCH (09:00)
[2023-01-03] MEDS ORDERED: REGL5TAB2 PO (09:21)
[2023-01-03] MEDS: LACTOBACILLUS ACIDOPHILUS CAP (BACID) PO SCH (10:24)
[2023-01-03] MEDS ORDERED: PREVNAR-20 VACCINE 0.5ML SYRINGE IM.IMMUN ONE (11:00)
[2023-01-05 23:09] LABS: L. PNEUMOPHILA (1,3,4,5,6,8) <0.91 OD ratio (0.00-0.90)
== END 2023-01-03 11:12 | disposition home or self-care (01) | DRG 179 ==
LOC: M ED 10:52 → M ED INP 16:30 → ENRESERV 17:14 → M MSPAV 17:37
PROVIDERS: ADMIT General Practice; ATTEND General Practice
DX: J69.0 Pneumonitis due to inhalation of food and vomit (principal); E86.0 Dehydration; M35.00 Sjogren syndrome, unspecified; I73.00 Raynaud's syndrome without gangrene; Z90.49 Acquired absence of other specified parts of digestive tract; Z90.79 Acquired absence of other genital organ(s); Z85.828 Personal history of other malignant neoplasm of skin; E87.6 Hypokalemia; K21.9 Gastro-esophageal reflux disease without esophagitis; R62.7 Adult failure to thrive; K44.9 Diaphragmatic hernia without obstruction or gangrene; R13.10 Dysphagia, unspecified; K76.0 Fatty (change of) liver, not elsewhere classified; R74.01 Elevation of levels of liver transaminase levels; M48.54XS Collapsed vertebra, not elsewhere classified, thoracic region, sequela of fracture; Z20.822 Contact with and (suspected) exposure to COVID-19; Z88.2 Allergy status to sulfonamides; Z79.899 Other long term (current) drug therapy; Z88.0 Allergy status to penicillin; Z88.1 Allergy status to other antibiotic agents; Z88.5 Allergy status to narcotic agent; Z88.8 Allergy status to other drugs, medicaments and biological substances; Z91.030 Bee allergy status; J98.6 Disorders of diaphragm; Z97.8 Presence of other specified devices

== ENCOUNTER → 2023-05-20 | Outpatient (CLI) | payer MEDICARE ==
[~2023-05-20] MED LIST changes: +CEFD300C41 PO; +METR-265 PO; +SUCR1ORA PO
[2023-05-20 17:33] LABS: PLATELET COUNT, AUTOMATED 258 10^3/uL (150-450)
[2023-05-20 18:08] LABS: INR 0.96; PARTIAL THROMBOPLASTIN TIME 26.8 SECONDS (24.8-34.2)
== END ==
LOC: M PLALAB 15:12
PROVIDERS: ATTEND Physician Assistant Surgical
DX: Z01.812 Encounter for preprocedural laboratory examination (principal)

== ENCOUNTER → 2023-06-30 | Outpatient (CLI) | payer MEDICARE | LOC: M WHC 09:56 | PROVIDERS: ATTEND Internal Medicine Endocrinology, Diabetes & Metabolism | DX: M81.0 Age-related osteoporosis without current pathological fracture (principal) ==

== ENCOUNTER → 2023-08-19 | Outpatient (CLI) | payer MEDICARE | LOC: M WHC 14:38 | PROVIDERS: ATTEND Family Medicine | DX: Z12.31 Encounter for screening mammogram for malignant neoplasm of breast (principal) ==

== ENCOUNTER → 2024-04-12 | Outpatient (CLI) | payer MEDICARE ==
[~2024-04-12] MED LIST changes: +CEFD1CAP9 PO; -CEFD300C41 PO; +DOXY-323 PO; -DOXY-443 PO
[2024-04-12 18:29] LABS: HEMATOCRIT 38.8 % (36.0-47.0); HEMOGLOBIN 12.8 g/dl (12.0-15.5); MEAN CORPUSCULAR HEMOGLOBIN 31.8 pg (27.0-33.0); MEAN CORPUSCULAR VOLUME 96.5 fl (80.0-96.0); PLATELET COUNT, AUTOMATED 229 10^3/uL (150-450); RED BLOOD COUNT 4.02 10^6/uL (4.00-5.40); WHITE BLOOD COUNT 5.9 10^3/uL (4.0-10.0)
[2024-04-12 18:59] LABS: ALBUMIN 3.2 G/DL (3.2-5.2); ALKALINE PHOSPHATASE 86 U/L (46-116); ALT/SGPT 21 U/L (7.0-40); AST/SGOT 22 U/L (<34); BILIRUBIN,TOTAL 1.3 MG/DL (0.3-1.2); BLOOD UREA NITROGEN 15 MG/DL (9-23); CALCIUM LEVEL 8.9 MG/DL (8.3-10.6); CARBON DIOXIDE LEVEL 29 MMOL/L (20-31); CHLORIDE LEVEL 106 MMOL/L (98-107); CREATININE FOR GFR 0.61 MG/DL (0.55-1.30); GLOMERULAR FILTRATION RATE > 60.0 (>39); GLUCOSE, FASTING 92 MG/DL (74-106); POTASSIUM SERUM 3.6 MMOL/L (3.5-5.1); SODIUM LEVEL 139 MMOL/L (136-145)
[2024-04-12 19:02] LABS: TOTAL 25(OH) VITAMIN D 57.9 NG/ML (20.0-100.0)
== END ==
LOC: M PLALAB 15:21
PROVIDERS: ATTEND Physician Assistant
DX: I48.0 Paroxysmal atrial fibrillation (principal); E55.9 Vitamin D deficiency, unspecified; Z86.711 Personal history of pulmonary embolism; Z79.01 Long term (current) use of anticoagulants

== ENCOUNTER → 2024-04-15 | Outpatient (CLI) | payer MEDICARE | LOC: M WUC 14:00 | PROVIDERS: ATTEND Psychiatry & Neurology Neurology | DX: M25.511 Pain in right shoulder (principal) ==

== ENCOUNTER → 2024-06-22 | Outpatient (CLI) | payer MEDICARE | LOC: M WUC 13:54 | PROVIDERS: ATTEND Physician Assistant | DX: S90.32XA Contusion of left foot, initial encounter (principal); S92.412A Displaced fracture of proximal phalanx of left great toe, initial encounter for closed fracture; X58.XXXA Exposure to other specified factors, initial encounter; Y92.9 Unspecified place or not applicable; Y93.9 Activity, unspecified; Y99.9 Unspecified external cause status ==

== ENCOUNTER 2024-07-06 12:27 | Emergency (ER) | payer MEDICARE ==
[~2024-07-06] VITALS: Ht 152.4 cm; Wt 69.1 kg
[2024-07-06 13:23] LABS: BASO % 0.6 % (0.0-1.0); EOS # 0.3 10^3/uL (0.0-0.5); HEMATOCRIT 39.9 % (36.0-47.0); HEMOGLOBIN 12.8 g/dl (12.0-15.5); LYMPH # 1.5 10^3/uL (1.5-5.0); LYMPH % 29.2 % (24.0-44.0); MEAN CORPUSCULAR HEMOGLOBIN 31.4 pg (27.0-33.0); MEAN CORPUSCULAR HGB CONC 32.1 g/dl (32.0-36.5); MEAN CORPUSCULAR VOLUME 97.8 fl (80.0-96.0); MONO # 0.4 10^3/uL (0.0-0.8); NEUTROPHILS % 56.8 % (36.0-66.0); PLATELET COUNT, AUTOMATED 215 10^3/uL (150-450); RED BLOOD COUNT 4.08 10^6/uL (4.00-5.40); WHITE BLOOD COUNT 5.2 10^3/uL (4.0-10.0)
[2024-07-06 13:37] LABS: INR 1.09; PROTHROMBIN TIME 13.8 SECONDS (12.5-14.5)
[2024-07-06 13:48] LABS: BLOOD UREA NITROGEN 15 MG/DL (9-23); CALCIUM LEVEL 8.6 MG/DL (8.3-10.6); CARBON DIOXIDE LEVEL 28 MMOL/L (20-31); CHLORIDE LEVEL 109 MMOL/L (98-107); CK-MB VALUE MASS < 1.0 NG/ML (<3.6); CREATININE FOR GFR 0.63 MG/DL (0.55-1.30); GLOMERULAR FILTRATION RATE > 60.0 (>39); GLUCOSE, FASTING 97 MG/DL (74-106); POTASSIUM SERUM 4.2 MMOL/L (3.5-5.1); SODIUM LEVEL 140 MMOL/L (136-145)
[2024-07-06 13:50] LABS: CPK CREATINE PHOSPHOKINASE 54 U/L (34-145); MB/CK RELATIVE INDEX 1.85 (< OR =4)
[2024-07-06] MEDS: ACETAMINOPHEN 325 MG TAB PO ONE (13:52)
[2024-07-06] MEDS: KETOROLAC 30 MG/ML 1ML VIAL IV ONE (15:19)
[2024-07-06] MEDS: traMADol 50 MG TAB PO ONE (16:21)
[2024-07-06] MEDS ORDERED: TRAM50TA2 PO (17:05)
[2024-07-06 17:17] VITALS: BP 128/75; TEMP 97; O2SAT 97
== END 2024-07-06 17:53 | disposition home or self-care (01) ==
LOC: M ED 12:27
DX: S22.22XA Fracture of body of sternum, initial encounter for closed fracture (principal); R91.1 Solitary pulmonary nodule; W07.XXXA Fall from chair, initial encounter; I49.3 Ventricular premature depolarization; S22.080A Wedge compression fracture of T11-T12 vertebra, initial encounter for closed fracture; S22.070A Wedge compression fracture of T9-T10 vertebra, initial encounter for closed fracture; K44.9 Diaphragmatic hernia without obstruction or gangrene; K21.9 Gastro-esophageal reflux disease without esophagitis; Z86.711 Personal history of pulmonary embolism; Z86.718 Personal history of other venous thrombosis and embolism; Z88.0 Allergy status to penicillin; Z88.1 Allergy status to other antibiotic agents; Z88.5 Allergy status to narcotic agent; Z91.030 Bee allergy status; Z79.2 Long term (current) use of antibiotics; Z79.899 Other long term (current) drug therapy; Y92.009 Unspecified place in unspecified non-institutional (private) residence as the place of occurrence of the external cause; Y93.89 Activity, other specified; Y99.9 Unspecified external cause status
CPT/HCPCS: 71046; 71250; 72125; 80048; 82550; 82553; 84484; 85025; 85610; 93005; 96374; 99284; J1885

== ENCOUNTER → 2024-09-29 | Outpatient (CLI) | payer MEDICARE ==
[~2024-09-29] MED LIST changes: -DOXY-323 PO; +DOXY-441 PO; +TRAM50TA2 PO
[2024-09-29 15:04] LABS: HEMATOCRIT 36.5 % (36.0-47.0); HEMOGLOBIN 11.5 g/dl (12.0-15.5); MEAN CORPUSCULAR HEMOGLOBIN 31.2 pg (27.0-33.0); MEAN CORPUSCULAR HGB CONC 31.5 g/dl (32.0-36.5); MEAN CORPUSCULAR VOLUME 98.9 fl (80.0-96.0); PLATELET COUNT, AUTOMATED 213 10^3/uL (150-450); RED BLOOD COUNT 3.69 10^6/uL (4.00-5.40); WHITE BLOOD COUNT 6.3 10^3/uL (4.0-10.0)
[2024-09-29 15:09] LABS: ALBUMIN 2.9 G/DL (3.2-5.2); ALKALINE PHOSPHATASE 102 U/L (35-104); ALT/SGPT 18 U/L (7.0-40); AST/SGOT 21 U/L (<34); BILIRUBIN,TOTAL 0.6 MG/DL (0.3-1.2); BLOOD UREA NITROGEN 12 MG/DL (9-23); CALCIUM LEVEL 9.4 MG/DL (8.3-10.6); CARBON DIOXIDE LEVEL 29 MMOL/L (20-31); CHLORIDE LEVEL 109 MMOL/L (98-107); CREATININE FOR GFR 0.57 MG/DL (0.55-1.30); GLOMERULAR FILTRATION RATE > 60.0 (>39); GLUCOSE, FASTING 92 MG/DL (74-106); POTASSIUM SERUM 3.5 MMOL/L (3.5-5.1); SODIUM LEVEL 142 MMOL/L (136-145); TOTAL PROTEIN 6.2 G/DL (5.7-8.2)
== END ==
LOC: M PLALAB 12:48
PROVIDERS: ATTEND Physician Assistant
DX: A41.9 Sepsis, unspecified organism (principal); N17.9 Acute kidney failure, unspecified; I48.0 Paroxysmal atrial fibrillation

== ENCOUNTER → 2024-10-10 | Outpatient (CLI) | payer MEDICARE | LOC: M PLAIMG 13:49 | PROVIDERS: ATTEND Internal Medicine Critical Care Medicine | DX: R91.8 Other nonspecific abnormal finding of lung field (principal); J90 Pleural effusion, not elsewhere classified ==

== ENCOUNTER 2024-10-16 15:21 | Emergency (ER) | payer MEDICARE ==
[~2024-10-16] VITALS: Ht 152.4 cm; Wt 68.2 kg
[2024-10-16 18:17] LABS: BASO % 0.6 % (0.0-1.0); EOS % 0.8 % (0.0-3.0); HEMATOCRIT 34.6 % (36.0-47.0); LYMPH # 1.5 10^3/uL (1.5-5.0); LYMPH % 27.3 % (24.0-44.0); MEAN CORPUSCULAR HEMOGLOBIN 31.5 pg (27.0-33.0); MEAN CORPUSCULAR HGB CONC 31.8 g/dl (32.0-36.5); MEAN CORPUSCULAR VOLUME 99.1 fl (80.0-96.0); MONO # 0.3 10^3/uL (0.0-0.8); NEUTROPHILS # 3.5 10^3/uL (1.5-8.5); NEUTROPHILS % 64.9 % (36.0-66.0); PLATELET COUNT, AUTOMATED 214 10^3/uL (150-450); RED BLOOD COUNT 3.49 10^6/uL (4.00-5.40); WHITE BLOOD COUNT 5.3 10^3/uL (4.0-10.0)
[2024-10-16 18:38] LABS: BLOOD UREA NITROGEN 19 MG/DL (9-23); CALCIUM LEVEL 9.3 MG/DL (8.3-10.6); CARBON DIOXIDE LEVEL 32 MMOL/L (20-31); CHLORIDE LEVEL 104 MMOL/L (98-107); CREATININE FOR GFR 0.77 MG/DL (0.55-1.30); GLOMERULAR FILTRATION RATE > 60.0 (>39); GLUCOSE, FASTING 98 MG/DL (74-106); POTASSIUM SERUM 3.9 MMOL/L (3.5-5.1); SODIUM LEVEL 144 MMOL/L (136-145)
[2024-10-16 21:30] VITALS: BP 117/74; TEMP 97.6; O2SAT 91
== END 2024-10-16 21:36 | disposition home or self-care (01) ==
LOC: M ED 15:21
DX: E86.0 Dehydration (principal); R80.9 Proteinuria, unspecified; K21.9 Gastro-esophageal reflux disease without esophagitis; Z86.79 Personal history of other diseases of the circulatory system; Z90.49 Acquired absence of other specified parts of digestive tract; Z88.0 Allergy status to penicillin; Z88.1 Allergy status to other antibiotic agents; Z88.5 Allergy status to narcotic agent; Z91.030 Bee allergy status; Z79.2 Long term (current) use of antibiotics; Z79.899 Other long term (current) drug therapy

== ENCOUNTER 2024-11-14 14:32 | Inpatient (IN) | payer MEDICARE ==
[~2024-11-14] VITALS: Ht 152.4 cm; Wt 76.4 kg
[~2024-11-14 14:32] MED LIST changes: +OMEP-611 PO; -OMEP20TA2 PO
[2024-11-14 16:13] LABS: BASO % 0.3 % (0.0-1.0); EOS % 0.3 % (0.0-3.0); HEMATOCRIT 40.7 % (36.0-47.0); HEMOGLOBIN 13.1 g/dl (12.0-15.5); LYMPH # 1.2 10^3/uL (1.5-5.0); LYMPH % 11.9 % (24.0-44.0); MEAN CORPUSCULAR HEMOGLOBIN 30.8 pg (27.0-33.0); MEAN CORPUSCULAR HGB CONC 32.2 g/dl (32.0-36.5); MEAN CORPUSCULAR VOLUME 95.8 fl (80.0-96.0); MONO # 0.5 10^3/uL (0.0-0.8); MONO % 4.9 % (2.0-8.0); NEUTROPHILS # 8.3 10^3/uL (1.5-8.5); NEUTROPHILS % 82.3 % (36.0-66.0); PLATELET COUNT, AUTOMATED 234 10^3/uL (150-450); RED BLOOD COUNT 4.25 10^6/uL (4.00-5.40); WHITE BLOOD COUNT 10.1 10^3/uL (4.0-10.0)
[2024-11-14] MEDS: dilTIAZem 25MG/5ML VIAL IV STA (16:42)
[2024-11-14 16:44] LABS: LIPASE 17 U/L (12-53)
[2024-11-14 16:47] LABS: ALBUMIN 3.2 G/DL (3.2-5.2); ALKALINE PHOSPHATASE 83 U/L (35-104); ALT/SGPT 25 U/L (7.0-40); AST/SGOT 39 U/L (<34); BILIRUBIN,DIRECT 0.4 MG/DL (<0.4); BILIRUBIN,TOTAL 1.1 MG/DL (0.3-1.2); BLOOD UREA NITROGEN 16 MG/DL (9-23); CALCIUM LEVEL 9.4 MG/DL (8.3-10.6); CARBON DIOXIDE LEVEL 24 MMOL/L (20-31); CHLORIDE LEVEL 107 MMOL/L (98-107); CREATININE FOR GFR 0.68 MG/DL (0.55-1.30); GLOMERULAR FILTRATION RATE > 60.0 (>39); GLUCOSE, FASTING 100 MG/DL (74-106); POTASSIUM SERUM 4.4 MMOL/L (3.5-5.1); SODIUM LEVEL 141 MMOL/L (136-145); TOTAL PROTEIN 6.8 G/DL (5.7-8.2)
[2024-11-14 17:17] LABS: ABG pH (ARTERIAL) 7.469 UNITS (7.350-7.450)
[2024-11-14 17:18] LABS: ABG BASE EXCESS 3.8 (-2.0-2.0); ABG HCO3 27.7 MMOL/L (22.0-26.0); ABG O2 SATURATION 91.3 % (95.0-99.0); ABG PARTIAL PRESSURE O2 60.4 mmHg (75.0-100.0); ABG STANDARD HCO3 27.8 MMOL/L. (22.0-26.0); ABG TOTAL CO2 28.9 MMOL/L (23.0-31.0)
[2024-11-14] MEDS: [UNRECOGNIZED DRUG - OTHER] IV ONE (17:24)
[2024-11-14] MEDS: NS 0.9% IV ONE (17:24)
[2024-11-14 17:31] LABS: BASO % 0.2 % (0.0-1.0); EOS % 0.1 % (0.0-3.0); HEMATOCRIT 42.3 % (36.0-47.0); HEMOGLOBIN 13.3 g/dl (12.0-15.5); LYMPH # 1.1 10^3/uL (1.5-5.0); LYMPH % 11.6 % (24.0-44.0); MEAN CORPUSCULAR HEMOGLOBIN 30.5 pg (27.0-33.0); MEAN CORPUSCULAR HGB CONC 31.4 g/dl (32.0-36.5); MONO # 0.6 10^3/uL (0.0-0.8); MONO % 5.9 % (2.0-8.0); NEUTROPHILS % 81.6 % (36.0-66.0); PLATELET COUNT, AUTOMATED 219 10^3/uL (150-450); RED BLOOD COUNT 4.36 10^6/uL (4.00-5.40); WHITE BLOOD COUNT 9.8 10^3/uL (4.0-10.0)
[2024-11-14] MEDS: ONDANSETRON 4MG 2ML VIAL IV ONE (17:31)
[2024-11-14] MEDS: MOXIFLOXACIN HCL 400 MG in IV 1 EA IV ONE (17:31)
[2024-11-14] MEDS: ACETAMINOPHEN 325 MG TAB PO ONE (17:32)
[2024-11-14 17:41] LABS: APPEARANCE, URINE CLEAR (CLEAR); BACTERIA, URINE AUTO NEGATIVE (NEGATIVE); BILIRUBIN, URINE AUTO NEGATIVE (NEGATIVE); BLOOD, URINE BLOOD NEGATIVE (NEGATIVE); COLOR, URINE YELLOW (YELLOW); GLUCOSE, URINE (UA) AUTO NEGATIVE (NEGATIVE); KETONE, URINE AUTO NEGATIVE (NEGATIVE); LEUKOCYTE ESTERASE, URINE AUTO NEGATIVE (NEGATIVE); MUCUS, URINE SMALL (NEGATIVE); NITRITE, URINE AUTO NEGATIVE (NEGATIVE); PROTEIN, URINE AUTO NEGATIVE (NEGATIVE); RBC, URINE AUTO 0 /HPF (0-3); SPECIFIC GRAVITY URINE AUTO 1.024 (1.002-1.035); SQUAMOUS EPITHELIAL CELL UR AU 0 /HPF (0-6); UROBILINOGEN, URINE AUTO 0.2 mg/dL (0.0-2.0); WBC, URINE AUTO 2 /HPF (0-3)
[2024-11-14 17:58] LABS: INR 1.57; PARTIAL THROMBOPLASTIN TIME 20.7 SECONDS (24.8-34.2)
[2024-11-14 18:05] LABS: AMYLASE 33 U/L (30-118); C REACTIVE PROTEIN QUANTITATIV 0.55 MG/DL (<1.0)
[2024-11-14] MEDS: dilTIAZem 30 MG TAB PO ONE (18:16)
[2024-11-14 18:29] LABS: PROCALCITONIN <0.04 ng/ml
[2024-11-14] MEDS ORDERED: NOREPINEPHRINE 4MG IN D5 250ML 4 MG in IV 1 EA IV SCH (18:30)
[2024-11-14] MEDS ORDERED: VANCOMYCIN/WATER FOR INJ 1,000 MG in IV 1 EA IV SCH (18:40)
[2024-11-14] MEDS: NS (Normal Saline) 0.9% 1,000 ML IV SCH (19:07)
[2024-11-14] MEDS ORDERED: NS 500 ML IV ONE (19:35)
[2024-11-14] MEDS ORDERED: NS (Normal Saline) 0.9% 1,000 ML IV SCH (19:40)
[2024-11-14 19:46] LABS: MAGNESIUM LEVEL 1.3 MG/DL (1.8-2.4)
[2024-11-14] MEDS ORDERED: SUCR1TAB56 PO (21:02)
[2024-11-14] MEDS ORDERED: MELA3TAB7 PO (21:02)
[2024-11-14] MEDS ORDERED: ROPI1TAB73 PO (21:02)
[2024-11-14] MEDS ORDERED: FOLI400T13 PO (21:02)
[2024-11-14] MEDS ORDERED: OMEP40CA5 PO (21:02)
[2024-11-14] MEDS ORDERED: THERTAB19 PO (21:02)
[2024-11-14] MEDS ORDERED: GLYC1TAB18 PO (21:04)
[2024-11-14] MEDS ORDERED: METO50TA7 PO (21:04)
[2024-11-14] MEDS ORDERED: GABA-1172 PO (21:15)
[2024-11-14] MEDS ORDERED: ELIQ5TAB PO (21:15)
[2024-11-14] MEDS ORDERED: MIRT-11 PO (21:15)
[2024-11-14] MEDS ORDERED: XIID5DRO OU (21:15)
[2024-11-14] MEDS ORDERED: LUTE6CAP9 PO (21:20)
[2024-11-14] MEDS ORDERED: MIRA3350 PO (21:20)
[2024-11-14] MEDS ORDERED: VITA100093 PO (21:20)
[2024-11-14] MEDS ORDERED: SENN-52 PO (21:20)
[2024-11-14] MEDS ORDERED: EQL50TAB2 PO (21:20)
[2024-11-14] MEDS ORDERED: MOM 30ML SUSPENSION UDC PO PRN (21:20)
[2024-11-14] MEDS: NS (Normal Saline) 0.9% 1,000 ML IV ONE ×2 (21:23→23:50)
[2024-11-14] MEDS: PANTOPRAZOLE 40MG VIAL IV ONE (21:23)
[2024-11-14] MEDS ORDERED: HOME MED LIST COMPLETE! XX SCH (21:25)
[2024-11-14 23:56] LABS: CK-MB VALUE MASS < 1.0 NG/ML (<3.6)
[2024-11-14 23:58] LABS: CPK CREATINE PHOSPHOKINASE 26 U/L (34-145); MB/CK RELATIVE INDEX 3.84 (< OR =4); PHOSPHORUS LEVEL 3.1 MG/DL (2.4-5.1)
[2024-11-15] MEDS: CEFEPIME HCL 2 GM in DEXTROSE 5% (D5W) ADV/MINI-BAG 50 ML IV SCH (00:07)
[2024-11-15] MEDS ORDERED: SENOKOT S TAB PO PRN (00:50)
[2024-11-15] MEDS ORDERED: MIRALAX *UNIT DOSE* 17GM PACKET PO PRN (00:50)
[2024-11-15] MEDS: METOPROLOL TART 12.5 MG PER 1/2 TAB PO ONE (03:04)
[2024-11-15] MEDS: RAMELTEON 8 MG TAB (ROZEREM) PO PRN (03:04)
[2024-11-15] MEDS: LORazepam 0.5 MG TAB PO ONE (03:04)
[2024-11-15] MEDS: VANCOMYCIN HCL 1,500 MG, VIAL MATE ADAPTER 1 EACH in NS 500 ML IV ONE (03:44)
[2024-11-15] MEDS: DOXYCYCLINE HYCLATE 100 MG in DEXTROSE 5% (D5W) MINI-BAG PLU 100 ML IV SCH (06:08)
[2024-11-15 07:42] LABS: HEMATOCRIT 31.8 % (36.0-47.0); MEAN CORPUSCULAR HEMOGLOBIN 30.3 pg (27.0-33.0); MEAN CORPUSCULAR HGB CONC 30.8 g/dl (32.0-36.5); MEAN CORPUSCULAR VOLUME 98.5 fl (80.0-96.0); PLATELET COUNT, AUTOMATED 171 10^3/uL (150-450); RED BLOOD COUNT 3.23 10^6/uL (4.00-5.40); WHITE BLOOD COUNT 8.9 10^3/uL (4.0-10.0)
[2024-11-15 07:46] LABS: HEMOGLOBIN 9.8 g/dl (12.0-15.5)
[2024-11-15 08:33] LABS: ALBUMIN 2.4 G/DL (3.2-5.2); ALKALINE PHOSPHATASE 62 U/L (35-104); ALT/SGPT 15 U/L (7.0-40); AST/SGOT 22 U/L (<34); BLOOD UREA NITROGEN 12 MG/DL (9-23); CALCIUM LEVEL 6.8 MG/DL (8.3-10.6); CARBON DIOXIDE LEVEL 22 MMOL/L (20-31); CHLORIDE LEVEL 114 MMOL/L (98-107); CREATININE FOR GFR 0.56 MG/DL (0.55-1.30); GLOMERULAR FILTRATION RATE > 60.0 (>39); GLUCOSE, FASTING 97 MG/DL (74-106); POTASSIUM SERUM 3.4 MMOL/L (3.5-5.1); SODIUM LEVEL 146 MMOL/L (136-145); TOTAL PROTEIN 5.3 G/DL (5.7-8.2)
[2024-11-15] MEDS: APIXABAN 5 MG TAB (ELIQUIS) PO SCH (08:46)
[2024-11-15] MEDS: GABAPENTIN 300 MG CAP PO SCH (08:46)
[2024-11-15] MEDS: SUCRALFATE 1 GM TAB PO SCH (08:46)
[2024-11-15] MEDS: VITAMIN D 1,000 INTERNATIONAL UNITS TABLET PO SCH (08:46)
[2024-11-15] MEDS: PANTOPRAZOLE 40MG VIAL IV SCH (08:47)
[2024-11-15] MEDS: BACLOFEN 10 MG TAB PO SCH (08:47)
[2024-11-15] MEDS: METOPROLOL SUCC (TopROL XL) 100MG *XL* TAB PO SCH (08:47)
[2024-11-15] MEDS ORDERED: PANTOPRAZOLE 40MG VIAL IV SCH (09:00)
[2024-11-15] MEDS: NEPHRO-VIT TAB (NEPHROCAPS) PO SCH (10:17)
[2024-11-15] MEDS: VANCOMYCIN 1,000MG/200 ML IV BAG IV SCH (16:19)
[2024-11-15] MEDS ORDERED: VANCOMYCIN HCL 750 MG, VIAL MATE ADAPTER 1 EACH in NS 250 ML IV SCH (17:00)
[2024-11-15 18:05] VITALS: BP 122/76; TEMP 97.4; O2SAT 100
[2024-11-15 19:35] VITALS: BP 111/60; TEMP 98.2; O2SAT 99
[2024-11-15] MEDS: DOXYCYCLINE HYCLATE 100MG TABLET PO SCH (23:14)
[2024-11-15] MEDS: rOPINIRole 1MG TAB PO SCH (23:14)
[2024-11-15] MEDS: MIRTAZAPINE 15 MG TAB PO SCH (23:15)
[2024-11-15 23:48] VITALS: BP 118/71; TEMP 97.9; O2SAT 97
[2024-11-16] VITALS (9 sets, daily range): BP systolic 97–143; BP diastolic 59–87; TEMP 97.6–98; O2SAT 94–100
[2024-11-16] MEDS: ACETAMINOPHEN 325 MG TAB PO PRN (02:38)
[2024-11-16] MEDS: ONDANSETRON 4MG 2ML VIAL IV PRN (09:50)
[2024-11-16] MEDS: CEFEPIME HCL 2 GM in DEXTROSE 5% (D5W) ADV/MINI-BAG 50 ML IV SCH (15:58)
[2024-11-17] VITALS (7 sets, daily range): BP systolic 114–149; BP diastolic 76–93; TEMP 96.9–98.3; O2SAT 90–95
[2024-11-17 06:21] LABS: BASO % 0.4 % (0.0-1.0); EOS # 0.2 10^3/uL (0.0-0.5); EOS % 2.9 % (0.0-3.0); HEMATOCRIT 38.9 % (36.0-47.0); LYMPH # 1.6 10^3/uL (1.5-5.0); LYMPH % 31.6 % (24.0-44.0); MEAN CORPUSCULAR HEMOGLOBIN 30.6 pg (27.0-33.0); MEAN CORPUSCULAR HGB CONC 31.1 g/dl (32.0-36.5); MEAN CORPUSCULAR VOLUME 98.2 fl (80.0-96.0); MONO # 0.4 10^3/uL (0.0-0.8); MONO % 6.9 % (2.0-8.0); NEUTROPHILS # 2.9 10^3/uL (1.5-8.5); NEUTROPHILS % 57.6 % (36.0-66.0); PLATELET COUNT, AUTOMATED 199 10^3/uL (150-450); RED BLOOD COUNT 3.96 10^6/uL (4.00-5.40); WHITE BLOOD COUNT 5.1 10^3/uL (4.0-10.0)
[2024-11-17 06:42] LABS: HEMOGLOBIN 12.1 g/dl (12.0-15.5)
[2024-11-17 08:29] LABS: ALBUMIN 2.8 G/DL (3.2-5.2); ALKALINE PHOSPHATASE 78 U/L (35-104); ALT/SGPT 17 U/L (7.0-40); AST/SGOT 23 U/L (<34); BILIRUBIN,TOTAL 0.5 MG/DL (0.3-1.2); BLOOD UREA NITROGEN 10 MG/DL (9-23); CALCIUM LEVEL 8.6 MG/DL (8.3-10.6); CARBON DIOXIDE LEVEL 22 MMOL/L (20-31); CHLORIDE LEVEL 113 MMOL/L (98-107); CREATININE FOR GFR 0.53 MG/DL (0.55-1.30); GLOMERULAR FILTRATION RATE > 60.0 (>39); GLUCOSE, FASTING 116 MG/DL (74-106); POTASSIUM SERUM 4.2 MMOL/L (3.5-5.1); SODIUM LEVEL 145 MMOL/L (136-145); TOTAL PROTEIN 6.2 G/DL (5.7-8.2)
[2024-11-17] MEDS: PANTOPRAZOLE 40MG TAB (PROTONIX) PO SCH (08:47)
[2024-11-17] MEDS: POTASSIUM CHLORIDE 10% LIQ 20MEQ/15ML UDC PO ONE (08:47)
[2024-11-17] MEDS: ONDANSETRON 4MG TAB PO PRN (11:02)
[2024-11-17] MEDS: LevoFLOXacin 750 MG TABLET PO SCH (17:17)
[2024-11-18 04:16] VITALS: BP 140/94; TEMP 97.2; O2SAT 93
[2024-11-18 05:33] LABS: BASO % 0.6 % (0.0-1.0); EOS # 0.1 10^3/uL (0.0-0.5); EOS % 2.7 % (0.0-3.0); LYMPH # 1.6 10^3/uL (1.5-5.0); LYMPH % 32.1 % (24.0-44.0); MEAN CORPUSCULAR HEMOGLOBIN 30.3 pg (27.0-33.0); MEAN CORPUSCULAR HGB CONC 30.8 g/dl (32.0-36.5); MEAN CORPUSCULAR VOLUME 98.5 fl (80.0-96.0); MONO # 0.5 10^3/uL (0.0-0.8); MONO % 10.4 % (2.0-8.0); NEUTROPHILS # 2.6 10^3/uL (1.5-8.5); NEUTROPHILS % 54.2 % (36.0-66.0); PLATELET COUNT, AUTOMATED 180 10^3/uL (150-450); RED BLOOD COUNT 3.96 10^6/uL (4.00-5.40); WHITE BLOOD COUNT 4.8 10^3/uL (4.0-10.0)
[2024-11-18 06:04] LABS: ALBUMIN 2.6 G/DL (3.2-5.2); ALKALINE PHOSPHATASE 77 U/L (35-104); ALT/SGPT 16 U/L (7.0-40); AST/SGOT 21 U/L (<34); BILIRUBIN,TOTAL 0.6 MG/DL (0.3-1.2); BLOOD UREA NITROGEN 11 MG/DL (9-23); CALCIUM LEVEL 8.8 MG/DL (8.3-10.6); CARBON DIOXIDE LEVEL 25 MMOL/L (20-31); CHLORIDE LEVEL 111 MMOL/L (98-107); CREATININE FOR GFR 0.52 MG/DL (0.55-1.30); GLOMERULAR FILTRATION RATE > 60.0 (>39); GLUCOSE, FASTING 108 MG/DL (74-106); POTASSIUM SERUM 4.3 MMOL/L (3.5-5.1); SODIUM LEVEL 144 MMOL/L (136-145); TOTAL PROTEIN 6.3 G/DL (5.7-8.2)
[2024-11-18 09:29] VITALS: BP 119/72; TEMP 98.2; O2SAT 92
[2024-11-18 12:29] LABS: PROCALCITONIN <0.04 ng/ml
[2024-11-18 13:38] VITALS: BP 130/87; TEMP 98.4; O2SAT 95
[2024-11-18] MEDS ORDERED: PANT40TA29 PO (14:50)
[2024-11-18] MEDS ORDERED: LEVO75TAB PO (14:50)
[2024-11-18] MEDS ORDERED: ONDA-83 PO (14:50)
== END 2024-11-18 16:17 | disposition home or self-care (01) | DRG 871 ==
LOC: M ED 14:32 → M ED INP 21:17 → M PCU 11-15 17:40
PROVIDERS: ADMIT Student in an Organized Health Care Education/Training Program; ATTEND Student in an Organized Health Care Education/Training Program
DX: A41.9 Sepsis, unspecified organism (principal); J18.9 Pneumonia, unspecified organism; E87.3 Alkalosis; I48.91 Unspecified atrial fibrillation; I10 Essential (primary) hypertension; F41.9 Anxiety disorder, unspecified; F32.A Depression, unspecified; K21.9 Gastro-esophageal reflux disease without esophagitis; K74.60 Unspecified cirrhosis of liver; G47.30 Sleep apnea, unspecified; M81.0 Age-related osteoporosis without current pathological fracture; M35.00 Sjogren syndrome, unspecified; G25.81 Restless legs syndrome; I73.00 Raynaud's syndrome without gangrene; E83.51 Hypocalcemia; R11.2 Nausea with vomiting, unspecified; R00.0 Tachycardia, unspecified; R10.9 Unspecified abdominal pain; E88.09 Other disorders of plasma-protein metabolism, not elsewhere classified; Z79.01 Long term (current) use of anticoagulants; Z79.899 Other long term (current) drug therapy; Z88.0 Allergy status to penicillin; Z88.1 Allergy status to other antibiotic agents; Z88.5 Allergy status to narcotic agent; Z88.8 Allergy status to other drugs, medicaments and biological substances; Z91.030 Bee allergy status; Z86.711 Personal history of pulmonary embolism; Z86.718 Personal history of other venous thrombosis and embolism; Z90.49 Acquired absence of other specified parts of digestive tract

== ENCOUNTER → 2024-12-02 | Outpatient (CLI) | payer MEDICARE ==
[~2024-12-02] MED LIST changes: +ELIQ5TAB PO; +EQL50TAB2 PO; +FOLI400T13 PO; +GABA-1172 PO; +GLYC1TAB18 PO; +LEVO75TAB PO; +LUTE6CAP9 PO; +MELA3TAB7 PO; +METO50TA7 PO; +MIRA3350 PO; +MIRT-11 PO; +OMEP40CA5 PO; +ONDA-83 PO; +PANT40TA29 PO; +ROPI1TAB73 PO; +SENN-52 PO; +SUCR1TAB56 PO; +THERTAB19 PO; +VITA100093 PO; +XIID5DRO OU
[2024-12-02 16:01] LABS: HEMATOCRIT 38.1 % (36.0-47.0); HEMOGLOBIN 11.6 g/dl (12.0-15.5); MEAN CORPUSCULAR HEMOGLOBIN 29.6 pg (27.0-33.0); MEAN CORPUSCULAR HGB CONC 30.4 g/dl (32.0-36.5); MEAN CORPUSCULAR VOLUME 97.2 fl (80.0-96.0); PLATELET COUNT, AUTOMATED 213 10^3/uL (150-450); RED BLOOD COUNT 3.92 10^6/uL (4.00-5.40); WHITE BLOOD COUNT 4.3 10^3/uL (4.0-10.0)
[2024-12-02 16:44] LABS: ALBUMIN 3.3 G/DL (3.2-5.2); ALKALINE PHOSPHATASE 82 U/L (35-104); ALT/SGPT 15 U/L (7.0-40); AST/SGOT 32 U/L (<34); BILIRUBIN,TOTAL 0.7 MG/DL (0.3-1.2); BLOOD UREA NITROGEN 18 MG/DL (9-23); CALCIUM LEVEL 9.7 MG/DL (8.3-10.6); CARBON DIOXIDE LEVEL 36 MMOL/L (20-31); CHLORIDE LEVEL 98 MMOL/L (98-107); CREATININE FOR GFR 0.78 MG/DL (0.55-1.30); GLOMERULAR FILTRATION RATE > 60.0 (>39); GLUCOSE, FASTING 146 MG/DL (74-106); POTASSIUM SERUM 3.5 MMOL/L (3.5-5.1); SODIUM LEVEL 142 MMOL/L (136-145); TOTAL PROTEIN 6.6 G/DL (5.7-8.2)
[2024-12-02 16:46] LABS: VITAMIN B12 LEVEL 1029 PG/ML (211-911)
[2024-12-02 16:53] LABS: FOLATE > 24.0 NG/ML (>5.4)
== END ==
LOC: M PLALAB 13:38
PROVIDERS: ATTEND Physician Assistant
DX: D52.0 Dietary folate deficiency anemia (principal); D51.9 Vitamin B12 deficiency anemia, unspecified; J15.9 Unspecified bacterial pneumonia; I48.0 Paroxysmal atrial fibrillation

== ENCOUNTER → 2024-12-30 | Outpatient (CLI) | payer MEDICARE | LOC: M WUC 12:50 | PROVIDERS: ATTEND Internal Medicine Critical Care Medicine | DX: R91.8 Other nonspecific abnormal finding of lung field (principal) ==

== ENCOUNTER → 2025-01-03 | Outpatient (CLI) | payer MEDICARE ==
[2025-01-03 15:24] LABS: BASO % 0.5 % (0.0-1.0); EOS # 0.1 10^3/uL (0.0-0.5); EOS % 3.6 % (0.0-3.0); HEMATOCRIT 42.1 % (36.0-47.0); HEMOGLOBIN 13.2 g/dl (12.0-15.5); LYMPH # 1.7 10^3/uL (1.5-5.0); MEAN CORPUSCULAR HEMOGLOBIN 29.3 pg (27.0-33.0); MEAN CORPUSCULAR HGB CONC 31.4 g/dl (32.0-36.5); MEAN CORPUSCULAR VOLUME 93.6 fl (80.0-96.0); MONO # 0.3 10^3/uL (0.0-0.8); MONO % 7.3 % (2.0-8.0); NEUTROPHILS # 1.7 10^3/uL (1.5-8.5); NEUTROPHILS % 44.6 % (36.0-66.0); PLATELET COUNT, AUTOMATED 195 10^3/uL (150-450); WHITE BLOOD COUNT 3.9 10^3/uL (4.0-10.0)
[2025-01-03 15:52] LABS: ALBUMIN 3.2 G/DL (3.2-5.2); ALKALINE PHOSPHATASE 82 U/L (35-104); ALT/SGPT 22 U/L (7.0-40); AST/SGOT 35 U/L (<34); BILIRUBIN,TOTAL 0.8 MG/DL (0.3-1.2); BLOOD UREA NITROGEN 19 MG/DL (9-23); CALCIUM LEVEL 9.4 MG/DL (8.3-10.6); CARBON DIOXIDE LEVEL 31 MMOL/L (20-31); CHLORIDE LEVEL 106 MMOL/L (98-107); CHOLESTEROL LEVEL 149 MG/DL (<200); CHOLESTEROL RISK RATIO 3.31 (<5); CREATININE FOR GFR 0.65 MG/DL (0.55-1.30); GLOMERULAR FILTRATION RATE > 60.0 (>39); GLUCOSE, FASTING 86 MG/DL (74-106); HDL CHOLESTEROL 44.9 MG/DL (>40); LDL CHOLESTEROL 81.7 MG/DL (<100); NON-HDL-C 104.1 MG/DL; SODIUM LEVEL 143 MMOL/L (136-145); TOTAL PROTEIN 6.7 G/DL (5.7-8.2); TRIGLYCERIDES LEVEL 112 MG/DL (<150)
[2025-01-03 15:55] LABS: THYROID STIMULATING HORMONE 3.234 uIU/ML (0.55-4.78)
[2025-01-03 15:59] LABS: CPK CREATINE PHOSPHOKINASE 34 U/L (34-145)
== END ==
LOC: M PLALAB 13:55
PROVIDERS: ATTEND Internal Medicine Cardiovascular Disease
DX: I48.0 Paroxysmal atrial fibrillation (principal); J45.20 Mild intermittent asthma, uncomplicated; Z86.711 Personal history of pulmonary embolism; R73.03 Prediabetes; K21.9 Gastro-esophageal reflux disease without esophagitis; G89.29 Other chronic pain; M54.50 Low back pain, unspecified; D53.9 Nutritional anemia, unspecified; E55.9 Vitamin D deficiency, unspecified; Z79.899 Other long term (current) drug therapy

== ENCOUNTER → 2025-02-22 | Outpatient (CLI) | payer MEDICARE ==
[~2025-02-22] VITALS: Ht 152.4 cm; Wt 60.5 kg
[2025-02-22 11:20] VITALS: BP 128/70; O2SAT 96
== END ==
LOC: M PAL 10:58
PROVIDERS: ATTEND Physician Assistant
DX: Z51.5 Encounter for palliative care (principal); Z66 Do not resuscitate; R64 Cachexia; J98.6 Disorders of diaphragm; Z79.891 Long term (current) use of opiate analgesic; Z79.899 Other long term (current) drug therapy; Z91.030 Bee allergy status; Z88.0 Allergy status to penicillin; Z88.1 Allergy status to other antibiotic agents; Z88.5 Allergy status to narcotic agent; Z88.8 Allergy status to other drugs, medicaments and biological substances

== ENCOUNTER → 2025-07-06 | Outpatient (CLI) | payer MEDICARE ==
[~2025-07-06] MED LIST changes: -EQL50TAB2 PO; +GABA-1171 PO; +KETO120S5; -KETO2SHA8; +LIFI1DRO4 OU; -MELA3TAB7 PO; +MELA3TAB78 PO; +VITA1TAB82 PO; -XIID5DRO OU
== END ==
LOC: M ONCM 14:27
DX: R64 Cachexia (principal)

== ENCOUNTER → 2025-07-06 | Outpatient (CLI) | payer MEDICARE | LOC: M PAL 13:56 | PROVIDERS: ATTEND Physician Assistant | DX: Z51.5 Encounter for palliative care (principal); Z66 Do not resuscitate; R64 Cachexia; R54 Age-related physical debility; J98.6 Disorders of diaphragm; Z87.01 Personal history of pneumonia (recurrent); J95.851 Ventilator associated pneumonia; J95.89 Other postprocedural complications and disorders of respiratory system, not elsewhere classified; Z79.891 Long term (current) use of opiate analgesic; Z91.030 Bee allergy status; Z88.0 Allergy status to penicillin; Z88.1 Allergy status to other antibiotic agents; Z88.5 Allergy status to narcotic agent; Z88.6 Allergy status to analgesic agent; Z79.899 Other long term (current) drug therapy; Z79.52 Long term (current) use of systemic steroids ==

== ENCOUNTER → 2025-08-31 | Outpatient (CLI) | payer MEDICARE | LOC: M ONCM 13:53 | DX: R64 Cachexia (principal); J98.6 Disorders of diaphragm; Z87.01 Personal history of pneumonia (recurrent) ==

== ENCOUNTER → 2025-11-10 | Outpatient (CLI) | payer MEDICARE ==
[2025-11-10 15:51] LABS: PLATELET COUNT, AUTOMATED 200 10^3/uL (150-450)
[2025-11-10 15:58] LABS: ALT/SGPT 22.0 U/L (7.0-40); AST/SGOT 33.0 U/L (<34); CALCIUM LEVEL 8.9 MG/DL (8.3-10.6); CARBON DIOXIDE LEVEL 32.0 MMOL/L (20-31); CHLORIDE LEVEL 103.0 MMOL/L (98-107); CREATININE FOR GFR 0.88 MG/DL (0.55-1.30); GLOMERULAR FILTRATION RATE 68.1 (>39); POTASSIUM SERUM 4.6 MMOL/L (3.5-5.1); SODIUM LEVEL 141.0 MMOL/L (136-145)
== END ==
LOC: M PLALAB 11:04
PROVIDERS: ATTEND Physician Assistant
DX: I48.0 Paroxysmal atrial fibrillation (principal); Z79.01 Long term (current) use of anticoagulants; Z86.711 Personal history of pulmonary embolism